=== PATIENT | male | born 1980 | race Caucasian/White ===

== ENCOUNTER 2017-02-13 23:05 | Emergency (ER) | payer MEDICARE, MEDICAID ==
[~2017-02-13] VITALS: Ht 177.8 cm; Wt 73.6 kg
[~2017-02-13 23:05] MED LIST: /AUGM875TA; ABIL2TAB; AMBI5TAB; EFFE75CA75; EFFEXOR; EFFEXOR XR; GABA300T; LORATADINE; NEUR300C; VICO5TAB; ZONISAMIDE
[2017-02-13 23:06] VITALS: BP 135/71
[2017-02-13] MEDS ORDERED: MELA1LIQ PO (23:30)
[2017-02-13] MEDS ORDERED: SERO1TAB3 PO (23:30)
[2017-02-13] MEDS ORDERED: ALPR0.25 (23:30)
== END 2017-02-14 03:20 | disposition left against medical advice (07) ==
LOC: M ED 23:46
DX: R10.9 Unspecified abdominal pain (principal)

== ENCOUNTER 2017-11-30 22:38 | Emergency (ER) | payer MEDICARE, MEDICAID ==
[2017-11-30 23:15] LABS: BASO % 0.5 % (0.0-1.0); EOS # 0.1 10^3/uL (0.0-0.50); EOS % 1.7 % (0.0-3.0); HEMATOCRIT 47.4 % (42.0-52.0); HEMOGLOBIN 15.8 g/dl (13.5-17.5); IMMATURE GRANULOCYTE % 0.2 % (0-3.0); LYMPH # 1.9 10^3/uL (1.5-4.5); LYMPH % 32.2 % (24.0-44.0); MEAN CORPUSCULAR HEMOGLOBIN 30.4 pg (27.0-33.0); MEAN CORPUSCULAR HGB CONC 33.3 g/dl (32.0-36.5); MEAN CORPUSCULAR VOLUME 91.2 fl (80.0-96.0); MONO # 0.5 10^3/uL (0.0-0.8); NEUTROPHILS # 3.5 10^3/uL (1.8-7.7); NEUTROPHILS % 57.4 % (36.0-66.0); PLATELET COUNT, AUTOMATED 260 10^3/uL (150-450); RED CELL DISTRIBUTION WIDTH 13.2 % (11.5-14.5)
[2017-11-30 23:49] LABS: ALBUMIN 4.4 GM/DL (3.2-5.2); ALBUMIN/GLOBULIN RATIO 1.16 (1.00-1.93); ALKALINE PHOSPHATASE 72 U/L (45-117); ALT/SGPT 24 U/L (12-78); ANION GAP 4 MEQ/L (8-16); AST/SGOT 20 U/L (7-37); BILIRUBIN,DIRECT 0.1 MG/DL (0.0-0.2); BILIRUBIN,TOTAL 0.5 MG/DL (0.2-1.0); BLOOD UREA NITROGEN 11 MG/DL (7-18); CARBON DIOXIDE LEVEL 29 MEQ/L (21-32); CHLORIDE LEVEL 106 MEQ/L (98-107); CREATININE FOR GFR 1.09 MG/DL (0.70-1.30); FREE THYROXINE INDEX 2.8 % (1.4-3.8); GLOMERULAR FILTRATION RATE > 60.0 (>60); GLUCOSE, FASTING 83 MG/DL (70-100); POTASSIUM SERUM 4.8 MEQ/L (3.5-5.1); RHEUMATOID FACTOR QUANT < 10.0 IU/ML (<15.0); SODIUM LEVEL 139 MEQ/L (136-145); T UPTAKE 37 % (33-40); THYROXINE (T4) 7.5 UG/DL (4.5-12.0); TOTAL PROTEIN 8.2 GM/DL (6.4-8.2)
[2017-12-01 00:02] LABS: ERYTHROCYTE SEDIMENTATION RATE 1 mm/hr (0-15)
[2017-12-03 00:06] LABS: ANTINUCLEAR ANTIBODIES DIRECT Negative (Negative); Lyme Disease IgG/IgM Antibodie <0.91 ISR (0.00-0.90); Lyme Disease IgM Ab Quantitati <0.80 index (0.00-0.79)
== END 2017-12-01 00:29 | disposition home or self-care (01) ==
LOC: M ED 22:38
DX: R51 Headache (principal); E02 Subclinical iodine-deficiency hypothyroidism
CPT/HCPCS: 84443

== ENCOUNTER 2018-03-28 06:55 | Emergency (ER) | payer MEDICARE, MEDICAID ==
[2018-03-28] MEDS: ASPIRIN 81 MG CHEW TABLET PO (07:45)
[2018-03-28 07:51] LABS: BASO % 0.7 % (0.0-1.0); EOS # 0.1 10^3/uL (0.0-0.50); EOS % 2.3 % (0.0-3.0); HEMATOCRIT 41.9 % (42.0-52.0); HEMOGLOBIN 14.5 g/dl (13.5-17.5); IMMATURE GRANULOCYTE % 0.3 % (0-3.0); LYMPH # 2.6 10^3/uL (1.5-4.5); LYMPH % 43.1 % (24.0-44.0); MEAN CORPUSCULAR HEMOGLOBIN 31.2 pg (27.0-33.0); MEAN CORPUSCULAR HGB CONC 34.6 g/dl (32.0-36.5); MEAN CORPUSCULAR VOLUME 90.1 fl (80.0-96.0); MONO # 0.6 10^3/uL (0.0-0.8); MONO % 10.3 % (0.0-5.0); NEUTROPHILS # 2.7 10^3/uL (1.8-7.7); NEUTROPHILS % 43.3 % (36.0-66.0); PLATELET COUNT, AUTOMATED 253 10^3/uL (150-450); RED BLOOD COUNT 4.65 10^6/uL (4.30-6.10); WHITE BLOOD COUNT 6.1 10^3/uL (4.0-10.0)
[2018-03-28 08:03] LABS: ALBUMIN 3.9 GM/DL (3.2-5.2); ALBUMIN/GLOBULIN RATIO 1.03 (1.00-1.93); ALKALINE PHOSPHATASE 59 U/L (45-117); ALT/SGPT 17 U/L (12-78); ANION GAP 8 MEQ/L (8-16); AST/SGOT 14 U/L (7-37); BILIRUBIN,DIRECT 0.1 MG/DL (0.0-0.2); BILIRUBIN,TOTAL 0.3 MG/DL (0.2-1.0); BLOOD UREA NITROGEN 8 MG/DL (7-18); CALCIUM LEVEL 8.7 MG/DL (8.5-10.1); CARBON DIOXIDE LEVEL 26 MEQ/L (21-32); CHLORIDE LEVEL 109 MEQ/L (98-107); CK-MB VALUE MASS < 1.0 NG/ML (<3.6); CPK CREATINE PHOSPHOKINASE 86 U/L (39-308); GLOMERULAR FILTRATION RATE > 60.0 (>60); GLUCOSE, FASTING 88 MG/DL (70-100); LIPASE 259 U/L (73-393); MB/CK RELATIVE INDEX 1.16 (< OR =4); POTASSIUM SERUM 3.6 MEQ/L (3.5-5.1); SODIUM LEVEL 143 MEQ/L (136-145); TOTAL PROTEIN 7.7 GM/DL (6.4-8.2); TROPONIN I < 0.02 NG/ML (< 0.10)
[2018-03-28 08:09] LABS: INR 1.07
[2018-03-28 08:10] LABS: PARTIAL THROMBOPLASTIN TIME 28.6 SECONDS (25.4-37.6)
[2018-03-28] MEDS ORDERED: ISOVUE-370 76% 100ML VIAL (Q9967) As Ordered (08:28)
== END 2018-03-28 10:54 | disposition home or self-care (01) ==
LOC: M ED 06:55
DX: R07.9 Chest pain, unspecified (principal); F42.9 Obsessive-compulsive disorder, unspecified; F31.9 Bipolar disorder, unspecified; F20.0 Paranoid schizophrenia; E03.9 Hypothyroidism, unspecified; R00.1 Bradycardia, unspecified
CPT/HCPCS: Q9967

== ENCOUNTER → 2020-07-01 | Outpatient (CLI) | payer SELFPAY ==
[~2020-07-01] MED LIST changes: +ALPR0.25; +MELA1LIQ PO; +SERO1TAB3 PO
== END ==
LOC: M LABSMTC 18:46
PROVIDERS: ATTEND Pediatrics
DX: Z11.59 Encounter for screening for other viral diseases (principal)

== ENCOUNTER 2020-08-13 21:35 | Emergency (ER) | payer MEDICARE, MEDICAID ==
[~2020-08-13] VITALS: Ht 177.8 cm; Wt 73.4 kg
[2020-08-13 21:37] VITALS: BP 134/85
--- OUTSIDE RECORDS SUMMARY | 2020-08-13 21:42 | CCD ---
Author Author [facility] Organization [facility] Address Unknown Phone Unavailable Care Team Providers Care Post Office Markup Clerk Name Role Phone Samantha TABARES Unavailable Unavailable SYMENOW, Johanny CHRISTGRAICAER PA Unavailable Unavailable SYMENOW, G CHRISTOPHER PA Unavailable Unavailable SYMENOW, G CHRISTOPHER PA Unavailable Unavailable SYMENOW, G CHRISTOPHER PA Unavailable Unavailable SYMENOW, G CHRISTOPHER PA Unavailable Unavailable SYMENOW, G CHRISTOPHER PA Unavailable Unavailable SYMENOW, G CHRISTOPHER PA Unavailable Unavailable SYMENOW, G CHRISTOPHER PA Unavailable Unavailable SYMENOW, G CHRISTOPHER PA Unavailable Unavailable SYMENOW, G CHRISTOPHER PA Unavailable Unavailable SYMENOW, G CHRISTOPHER PA Unavailable Unavailable SYMENOW, G CHRISTOPHER PA Unavailable Unavailable SYMENOW, G CHRISTOPHER PA Unavailable Unavailable SYMENOW, G CHRISTOPHER PA Unavailable Unavailable SYMENOW, G CHRISTOPHER PA Unavailable Unavailable SYMENOW, G CHRISTOPHER PA Unavailable Unavailable SYMENOW, G CHRISTOPHER PA Unavailable Unavailable Queen, W Inocente RPA-C Unavailable Unavailable Queen, W Inocente RPA-C Unavailable Unavailable Queen, W Inocente RPA-C Unavailable Unavailable Queen, W Inocente RPA-C Unavailable Unavailable Queen, W Inocente RPA-C Unavailable Unavailable Queen, W Inocente RPA-C Unavailable Unavailable Queen, W Inocente RPA-C Unavailable Unavailable Queen, W Inocente RPA-C Unavailable Unavailable Queen, W Inocente RPA-C Unavailable Unavailable Queen, W Inocente RPA-C Unavailable Unavailable Queen, W Inocente RPA-C Unavailable Unavailable Queen, W Inocente RPA-C Unavailable Unavailable Queen, W Inocente RPA-C Unavailable Unavailable Queen, W Inocente RPA-C Unavailable Unavailable Queen, W Inocente RPA-C Unavailable Unavailable Queen, W Inocente RPA-C Unavailable Unavailable FLYNN, L LAUREL PA Unavailable Unavailable FLYNN, L LAUREL PA Unavailable Unavailable FLYNN, L LAUREL PA Unavailable Unavailable FLYNN, L LAUREL PA Unavailable Unavailable FLYNN, L LAUREL PA Unavailable Unavailable FLYNN, L LAUREL PA Unavailable Unavailable FLYNN, L LAUREL PA Unavailable Unavailable FLYNN, L LAUREL PA Unavailable Unavailable FLYNN, L LAUREL PA Unavailable Unavailable FLYNN, L LAUREL PA Unavailable Unavailable FLYNN, L LAUREL PA Unavailable Unavailable FLYNN, L LAUREL PA Unavailable Unavailable FLYNN, L LAUREL PA Unavailable Unavailable FLYNN, L LAUREL PA Unavailable Unavailable FLYNN, L LAUREL PA Unavailable Unavailable FLYNN, L LAUREL PA Unavailable Unavailable FLYNN, L LAUREL PA Unavailable Unavailable FLYNN, L LAUREL PA Unavailable Unavailable FLYNN, L LAUREL PA Unavailable Unavailable VIGEANT, KEVIN PA Unavailable Unavailable VIGEANT, KEVIN PA Unavailable Unavailable VIGEANT, KEVIN PA Unavailable Unavailable VIGEANT, KEVIN PA Unavailable Unavailable VIGEANT, KEVIN PA Unavailable Unavailable VIGEANT, KEVIN PA Unavailable Unavailable VIGEANT, KEVIN PA Unavailable Unavailable VIGEANT, KEVIN PA Unavailable Unavailable VIGEANT, KEVIN PA Unavailable Unavailable VIGEANT, KEVIN PA Unavailable Unavailable VIGEANT, KEVIN PA Unavailable Unavailable VIGEANT, KEVIN PA Unavailable Unavailable VIGEANT, KEVIN PA Unavailable Unavailable VIGEANT, KEVIN PA Unavailable Unavailable VIGEANT, KEVIN PA Unavailable Unavailable VIGEANT, KEVIN PA Unavailable Unavailable VIGEANT, KEVIN PA Unavailable Unavailable VIGEANT, KEVIN PA Unavailable Unavailable San, Reina Unavailable Unavailable San, Reina Unavailable Unavailable San, Reina Unavailable Unavailable San, Reina Unavailable Unavailable San, Reina Unavailable Unavailable San, Reina Unavailable Unavailable San, Reina Unavailable Unavailable FAYE, FAROOQ PA Unavailable Unavailable FAYE, FAROOQ PA Unavailable Unavailable FAYE, FAROOQ PA Unavailable Unavailable FAYE, FAROOQ PA Unavailable Unavailable FAYE, FAROOQ PA Unavailable Unavailable FAYE, FAROOQ PA Unavailable Unavailable FAYE, FAROOQ PA Unavailable Unavailable FAYE, FAROOQ PA Unavailable Unavailable FAYE, FAROOQ PA Unavailable Unavailable FAYE, FAROOQ PA Unavailable Unavailable FAYE, FAROOQ PA Unavailable Unavailable FAYE, FAROOQ PA Unavailable Unavailable FAYE, FAROOQ PA Unavailable Unavailable FAYE, FAROOQ PA Unavailable Unavailable FAYE, FAROOQ PA Unavailable Unavailable FAYE, FAROOQ PA Unavailable Unavailable FAYE, FAROOQ PA Unavailable Unavailable FAYE, FAROOQ PA Unavailable Unavailable FAYE, FAROOQ PA Unavailable Unavailable FAYE, FAROOQ PA Unavailable Unavailable FAYE, FAROOQ PA Unavailable Unavailable FAYE, FAROOQ PA Unavailable Unavailable FAYE, FAROOQ PA Unavailable Unavailable FAYE, FAROOQ PA Unavailable Unavailable FAYE, FAROOQ PA Unavailable Unavailable FAYE, FAROOQ PA Unavailable Unavailable FAYE, FAROOQ PA Unavailable Unavailable FAYE, FAROOQ PA Unavailable Unavailable FAYE, FAROOQ PA Unavailable Unavailable FAYE, FAROOQ PA Unavailable Unavailable FAYE, FAROOQ PA Unavailable Unavailable FAYE, FAROOQ PA Unavailable Unavailable FAYE, FAROOQ PA Unavailable Unavailable FAYE, FAROOQ PA Unavailable Unavailable FAYE, FAROOQ PA Unavailable Unavailable FAYE, FAROOQ PA Unavailable Unavailable FAYE, FAROOQ PA Unavailable Unavailable FAYE, FAROOQ PA Unavailable Unavailable Star, A Irina HISTORIC SITES REGISTRAR Unavailable Unavailable Star, A Irina HISTORIC SITES REGISTRAR Unavailable Unavailable Star, A Irina HISTORIC SITES REGISTRAR Unavailable Unavailable Star, A Irina HISTORIC SITES REGISTRAR Unavailable Unavailable Star, A Irina HISTORIC SITES REGISTRAR Unavailable Unavailable Star, A Irina HISTORIC SITES REGISTRAR Unavailable Unavailable Star, A Irina HISTORIC SITES REGISTRAR Unavailable Unavailable Star, A Irina HISTORIC SITES REGISTRAR Unavailable Unavailable Star, A Irina HISTORIC SITES REGISTRAR Unavailable Unavailable Star, A Irina HISTORIC SITES REGISTRAR Unavailable Unavailable Star, A Irina HISTORIC SITES REGISTRAR Unavailable Unavailable Star, A Irina HISTORIC SITES REGISTRAR Unavailable Unavailable Star, A Irina HISTORIC SITES REGISTRAR Unavailable Unavailable Star, A Irina HISTORIC SITES REGISTRAR Unavailable Unavailable Star, A Irina HISTORIC SITES REGISTRAR Unavailable Unavailable Star, A Irina HISTORIC SITES REGISTRAR Unavailable Unavailable Star, A Irina HISTORIC SITES REGISTRAR Unavailable Unavailable Star, A Irina HISTORIC SITES REGISTRAR Unavailable Unavailable Star, A Irina HISTORIC SITES REGISTRAR Unavailable Unavailable Star, A Irina HISTORIC SITES REGISTRAR Unavailable Unavailable Star, A Irina HISTORIC SITES REGISTRAR Unavailable Unavailable Star, A Irina HISTORIC SITES REGISTRAR Unavailable Unavailable Star, A Irina HISTORIC SITES REGISTRAR Unavailable Unavailable Star, A Irina HISTORIC SITES REGISTRAR Unavailable Unavailable Star, A Irina HISTORIC SITES REGISTRAR Unavailable Unavailable Star, A Irina HISTORIC SITES REGISTRAR Unavailable Unavailable Star, A Irina HISTORIC SITES REGISTRAR Unavailable Unavailable Star, A Irina HISTORIC SITES REGISTRAR Unavailable Unavailable Star, A Irina HISTORIC SITES REGISTRAR Unavailable Unavailable Star, A Irina HISTORIC SITES REGISTRAR Unavailable Unavailable Star, A Irina HISTORIC SITES REGISTRAR Unavailable Unavailable Star, A Irina HISTORIC SITES REGISTRAR Unavailable Unavailable Star, A Irina HISTORIC SITES REGISTRAR Unavailable Unavailable Star, A Irina HISTORIC SITES REGISTRAR Unavailable Unavailable Star, A Irina HISTORIC SITES REGISTRAR Unavailable Unavailable Star, A Irina HISTORIC SITES REGISTRAR Unavailable Unavailable Star, A Irina HISTORIC SITES REGISTRAR Unavailable Unavailable Star, A Irina HISTORIC SITES REGISTRAR Unavailable Unavailable Star, A Irina HISTORIC SITES REGISTRAR Unavailable Unavailable Star, A Irina HISTORIC SITES REGISTRAR Unavailable Unavailable Star, A Irina HISTORIC SITES REGISTRAR Unavailable Unavailable Star, A Irina HISTORIC SITES REGISTRAR Unavailable Unavailable Star, A Irina HISTORIC SITES REGISTRAR Unavailable Unavailable Star, A Irina HISTORIC SITES REGISTRAR Unavailable Unavailable PAMELA, THAO KRUSE Unavailable Unavailable PAMELA, THAO KRUSE Unavailable Unavailable PAMELA, THAO DA SILVA PA Unavailable Unavailable PAMELA, THAO DA SILVA PA Unavailable Unavailable PAMELA, THAO DA SILVA PA Unavailable Unavailable PAMELA, THAO REKHA PA Unavailable Unavailable PAMELA, THAO REKHA PA Unavailable Unavailable PAMELA, THAO REKHA PA Unavailable Unavailable PAMELA, THAO REKHA PA Unavailable Unavailable PAMELA, THAO REKHA PA Unavailable Unavailable PAMELA, THAO REKHA PA Unavailable Unavailable PAMELA, THAO REKHA PA Unavailable Unavailable PAMELA, THAO REKHA PA Unavailable Unavailable PAMELA, THAO REKHA PA Unavailable Unavailable PAMELA, THAO REKHA PA Unavailable Unavailable PAMELA, THAO REKHA PA Unavailable Unavailable PAMELA, THAO REKHA PA Unavailable Unavailable PAMELA, THAO REKHA PA Unavailable Unavailable PAMELA, THAO REKHA PA Unavailable Unavailable PAMELA, THAO RKEHA PA Unavailable Unavailable PAMELA, THAO REKHA PA Unavailable Unavailable Danica, M Irina PA-C Unavailable Unavailable Danica, M Irina PA-C Unavailable Unavailable Danica, M Irina PA-C Unavailable Unavailable Danica, M Irina PA-C Unavailable Unavailable Dnaica, M Irina PA-C Unavailable Unavailable Danica, M Irina PA-C Unavailable Unavailable Danica, M Irina PA-C Unavailable Unavailable Danica, M Irina PA-C Unavailable Unavailable Danica, M Irina PA-C Unavailable Unavailable Danica, M Irina PA-C Unavailable Unavailable Danica, M Irina PA-C Unavailable Unavailable Danica, M Irina PA-C Unavailable Unavailable Danica, M Irina PA-C Unavailable Unavailable Danica, M Irina PA-C Unavailable Unavailable Danica, M Irina PA-C Unavailable Unavailable Danica, M Irina PA-C Unavailable Unavailable Danica, M Irina PA-C Unavailable Unavailable Danica, M Irina PA-C Unavailable Unavailable Danica, M Irina PA-C Unavailable Unavailable Danica, M Irina PA-C Unavailable Unavailable Danica, M Irina PA-C Unavailable Unavailable Danica, M Irina PA-C Unavailable Unavailable Danica, M Irina PA-C Unavailable Unavailable SEVILLA, CODY BEAUCHAMP Unavailable Unavailable SEVILLA SR, BUSTER BROWN MD Unavailable Unavailable SEVILLA SR, BUSTER BROWN MD Unavailable Unavailable SEVILLA SR, BUSTER BROWN MD Unavailable Unavailable SEVILLA SR, BUSTER BROWN MD Unavailable Unavailable SEVILLA SR, BUSTER BROWN MD Unavailable Unavailable SEVILLA SR, BUSTER BROWN MD Unavailable Unavailable SEVILLA SR, BUSTER BROWN MD Unavailable Unavailable SEVILLA SR, BUSTER BROWN MD Unavailable Unavailable SEVILLA SR, BUSTER BROWN MD Unavailable Unavailable SEVILLA SR, BUSTER BROWN MD Unavailable Unavailable SEVILLA SR, BUSTER BROWN MD Unavailable Unavailable SEVILLA SR, BUSTER BROWN MD Unavailable Unavailable SEVILLA SR, BUSTER BROWN MD Unavailable Unavailable SEVILLA SR, BUSTER BROWN MD Unavailable Unavailable SEVILLA SR, BUSTER BROWN MD Unavailable Unavailable SEVILLA SR, BUSTER BROWN MD Unavailable Unavailable SEVILLA SR, BUSTER BROWN MD Unavailable Unavailable SEVILLA SR, BUSTER BROWN MD Unavailable Unavailable SEVILLA SR, BUSTER BROWN MD Unavailable Unavailable SEVILLA SR, BUSTER BROWN MD Unavailable Unavailable SEVILLA SR, BUSTER BROWN MD Unavailable Unavailable SEVILLA SR, BUSTER BROWN MD Unavailable Unavailable SEVILLA SR, BUSTER BROWN MD Unavailable Unavailable SEVILLA SR, BUSTER BROWN MD Unavailable Unavailable SEVILLA SR, BUSTER BROWN MD Unavailable Unavailable SEVILLA SR, BUSTER BROWN MD Unavailable Unavailable SEVILLA SR, BUSTER BROWN MD Unavailable Unavailable SEVILLA SR, BUSTER BROWN MD Unavailable Unavailable SEVILLA SR, BUSTER BROWN MD Unavailable Unavailable SEVILLA SR, BUSTER BROWN MD Unavailable Unavailable SEVILLA SR, BUSTER BROWN MD Unavailable Unavailable SEVILLA SR, BUSTER BROWN MD Unavailable Unavailable SEVILLA SR, BUSTER BROWN MD Unavailable Unavailable SEVILLA SR, BUSTER BROWN MD Unavailable Unavailable SEVILLA SR, BUSTER BROWN MD Unavailable Unavailable SEVILLA SR, BUSTER BROWN MD Unavailable Unavailable SEVILLA SR, BUSTER BROWN MD Unavailable Unavailable SEVILLA SR, BUSTER BROWN MD Unavailable Unavailable SEVILLA SR, BUSTER BROWN MD Unavailable Unavailable SEVILLA SR, BUSTER BROWN MD Unavailable Unavailable SEVILLA SR, BUSTER BROWN MD Unavailable Unavailable SEVILLA SR, BUSTER BROWN MD Unavailable Unavailable SEVILLA SR, BUSTER BROWN MD Unavailable Unavailable SEVILLA SR, BUSTER BROWN MD Unavailable Unavailable SEVILLA SR, BUSTER BROWN MD Unavailable Unavailable SEVILLA SR, BUSTER BROWN MD Unavailable Unavailable SEVILLA SR, BUSTER BROWN MD Unavailable Unavailable SEVILLA SR, BUSTER BROWN MD Unavailable Unavailable SEVILLA SR, BUSTER BROWN MD Unavailable Unavailable SEVILLA SR, BUSTER BROWN MD Unavailable Unavailable SEVILLA SR, BUSTER BROWN MD Unavailable Unavailable SEVILLA SR, BUSTER BROWN MD Unavailable Unavailable SEVILLA SR, BUSTER BROWN MD Unavailable Unavailable SEVILLA SR, BUSTER BROWN MD Unavailable Unavailable ALISSA BALL Unavailable Unavailable Rydberg, Avis PA Unavailable Unavailable Rydberg, Avis PA Unavailable Unavailable Rydberg, Avis PA Unavailable Unavailable Rydberg, Avis PA Unavailable Unavailable Rydberg, Avis PA Unavailable Unavailable Rydberg, Avis PA Unavailable Unavailable Rydberg, Avis PA Unavailable Unavailable Rydberg, Avis PA Unavailable Unavailable Rydberg, Avis PA Unavailable Unavailable Rydberg, Avis PA Unavailable Unavailable Rydberg, Avis PA Unavailable Unavailable Rydberg, Avis PA Unavailable Unavailable Rydberg, Avis PA Unavailable Unavailable Rydberg, Avis PA Unavailable Unavailable Rydberg, Avis PA Unavailable Unavailable Rydberg, Avis PA Unavailable Unavailable Rydberg, Avis PA Unavailable Unavailable Rydberg, Avis PA Unavailable Unavailable Rydberg, Avis PA Unavailable Unavailable Rydberg, Avis PA Unavailable Unavailable Rydberg, Avis PA Unavailable Unavailable Rydberg, Avis PA Unavailable Unavailable Re-disclosure Warning The records that you are about to access may contain information from federally-assisted alcohol or drug abuse programs. If such information is present, then the following federally mandated warning applies: This information has been disclosed to you from records protected by federal confidentiality rules (42 CFR part 2). The federal rules prohibit you from making any further disclosure of this information unless further disclosure is expressly permitted by the written consent of the person to whom it pertains or as otherwise permitted by 42 CFR part 2. A general authorization for the release of medical or other information is NOT sufficient for this purpose. The Federal rules restrict any use of the information to criminally investigate or prosecute any alcohol or drug abuse patient.The records that you are about to access may contain highly sensitive health information, the redisclosure of which is protected by Article 27-F of the [facility] Public Health law. If you continue you may have access to information: Regarding HIV / AIDS; Provided by facilities licensed or operated by the [facility] Office of Mental Health; or Provided by the [facility] Office for People With Developmental Disabilities. If such information is present, then the following [facility] mandated warning applies: This information has been disclosed to you from confidential records which are protected by state law. State law prohibits you from making any further disclosure of this information without the specific written consent of the person to whom it pertains, or as otherwise permitted by law. Any unauthorized further disclosure in violation of state law may result in a fine or shelter sentence or both. A general authorization for the release of medical or other information is NOT sufficient authorization for further disc losure. Allergies and Adverse Reactions Type Description Substance Reaction Status Data Source(s ) [facility] BRANDNAME EFFEXOR [facility] Family History Family Member Name Family Member Gender Family Member Status Date o f Status Description Data Source(s) Unknown Male Problem MEDENT ([facility]) () - at age 24 Encounters Encounter Providers Location Date Indications Data Source(s ) Outpatient Attender: FAROOQ guzman 08/10/2020 07:40:00 AM EST MEDENT ([facility]) Emergency Attender: SMITA TABARESConsultant: NITO LUEVANO 08/08/2020 06:17:00 PM EST - 08/08/2020 08:34:00 PM [facility] Patient discharged. Outpatient [facility] 08/07/2020 12:00:00 AM EST eCW1 ([facility]) Outpatient [facility] 08/01/2020 12:00:00 AM EST eCW1 ([facility]) Outpatient [facility] 08/01/2020 12:00:00 AM EST eCW1 ([facility]) Outpatient Attender: Irina DELGADOCReferrer: Irina Graves [facility] 07/30/2020 08:35:00 AM EST - 07/30/2020 08:35:00 AM [facility] Emergency Attender: HAIM BALLReferrer: Pamela Graves [facility] 07/15/2020 05:42:00 AM EST - 07/15/2020 06:22:00 AM [facility] Patient discharged. Emergency Attender: Inocente Queen RPA-CReferrer: Me doris Graves [facility] 07/05/2020 07:33:00 AM EST - 07/05/2020 12:00:00 PM [facility] Patient discharged. Emergency Attender: REKHA Sagastumeer: Irene Graves [facility] 04/08/2020 05:05:00 PM EDT - 04/08/2020 06:32:00 PM EDT [facility] Patient discharged. Emergency Attender: LAUREL Sagastumeer: Ely lundbergith Star [facility] 03/26/2018 12:35:00 AM EDT - 03/26/2018 03:08:00 AM [facility] Outpatient Attender: Irina Graves FNPReferrer: Irina Graves RODRIGO 11/21/2017 06:44:00 PM EDT - 11/21/2017 06:44:00 PM [facility] Emergency Attender: REKHA Sagastumeer: Pete [facility] 11/09/2017 10:12:00 AM EDT - 11/09/2017 11:40:00 AM [facility] Emergency Attender: PAM Cordova : KEVIN [facility] 09/23/2017 02:43:00 AM EST - 09/23/2017 09:02:00 AM [facility] Emergency Attender: LAUREL Cordova: JACQUES [facility] 02/14/2017 04:40:00 PM EDT - 02/14/2017 07:55:00 PM [facility] Outpatient Attender: Reina Oherrer: Avis KRUSE 03/31/2016 03:01:00 PM [facility] Outpatient Attender: Avis KRUSE 07/13/2013 01:17:00 PM [facility] Outpatient Attender: Avis KRUSE 11/21/2012 03:47:00 PM [facility] Outpatient Attender: KEVIN Cordova: ANETA [facility] 05/09/2012 04:16:00 PM EDT - 05/09/2012 04:16:00 PM [facility] Medications Medication Brand Name Start Date Product Form Dose Route Admi nistrative Instructions Pharmacy Instructions Status Indications Reaction Description Data Source(s) Lidocaine 50 MG/ML Topical Cream Lidocaine (Anorectal) 08/10 12:00:00 AM EST active MEDENT ([facility]) No Active Medications 08/10/2020 12:00:00 AM EST completed MEDENT ([facility], [facility]) Insurance Providers Payer name Policy type / Coverage type Policy ID Covered constitution party ID Covered constitution party's relationship to moss Policy Moss Plan Information SELF PAY ONLY MEDICARE PART A -O/P [id number] 18 [id number] MEDICAID - O/P EMERGENCY ROOM [id number] MEDICARE PART A-O/P [id number] 18 [id number] MEDICAID [id number] S [id number] [place] [facility] [id number] S [id number] [place] [id number] S [id number] MEDICAID [id number] S [id number] [facility] MEDICARE DIVISION [id number] S [id number] [place] [id number] S [id number] MEDICAID [id number] S [id number] [place] [employer] [employer] [id number] S [id number] [place] [id number] S [id number] [place] MED[place] [id number] S [id number] MEDICAID [id number] S [id number] [place] [id number] S [id number] [place] [id number] SP [id number] MEDICARE [id number] SP [id number] MEDICAID M [id number] Self [id number] MEDICARE A [id number] Self [id number] MEDICAID [id number] S [id number] MEDICARE [id number] S [id number] ANSI-Medicare Part B [id number] ANSI-Medicaid [id number] ANSI-Commercial [id number] MEDICAID [id number] MEDICAID [id number] SP [id number] [place] Medig[place] Part B [id number] Self [id number] Medicare [facility] Medicare Primary [id number] Self [id number] MEDICAID [id number] S [id number] MEDICAID M [id number] S [id number] MEDICARE C [id number] S [id number] National Government Serv Medicare Primary [id number] Self [id number] MEDICAID [facility] [id number] [id number] MEDICARE [id number] SP [id number] SELF PAY UNAVAILABLE SP UNAVAILA BLE [id number] Problems, Conditions, and Diagnoses Code Display Name Description Problem Type Effective Dates Data Source(s) E78.2 [id number] Mixed hyperlipidemia Problem 08/04/2020 12:0 0:00 AM EST [facility] ([facility]) M32.9 [id number] History of systemic lupus erythematosus ( SLE) Problem 07/30/2020 12:00:00 AM EST [facility] ([facility]) E03.9 [id number] Hypothyroidism (acquired) Problem 07/30/2020 12:00:00 AM EST [facility] ([facility]) K5900 Constipation, unspecified Constipation, unspecified Di agnosis 08/08/2020 06:17:00 PM [facility] R1084 Generalized abdominal pain Generalized abdominal pain Diagnosis 08/08/2020 06:17:00 PM [facility] Z76.89 Persons encountering health services in other specified circumstances PERSONS ENCOUNTERING HEALTH SERVICES IN OTH CIRCUM Diagnosis 12/2020 08:35:00 AM [facility] Z12.11 Encounter for screening for malignant ne oplasm of colon ENCOUNTER FOR SCREENING FOR MALIGNANT NEOPLASM OF Diagnosis 07/30/2020 08:35:00 AM [facility] M32.9 Systemic lupus erythematosus, unspecifie d SYSTEMIC LUPUS ERYTHEMATOSUS, UNSPECIFIED Diagnosis 07/30/2020 08:35:00 AM [facility] R03.0 Elevated blood-pressure reading, without diagnosis of hypertension ELEVATED BLOOD-PRESSURE READING, W/O DIAGNOSIS OF Diagnosis 12/2020 08:35:00 AM [facility] J34.2 Deviated nasal septum DEVIATED NASAL SEPTUM Diagnosis 07/30/2020 08:35:00 AM [facility] K59.09 Other constipation OTHER CONSTIPATION Diagnosis 12/2020 08:35:00 AM [facility] R73.9 Hyperglycemia, unspecified HYPERGLYCEMIA, UNSPECIFIED Diagnosis 07/30/2020 08:35:00 AM [facility] E03.9 Hypothyroidism, unspecified HYPOTHYROIDISM, UNSPECIFIE D Diagnosis 07/30/2020 08:35:00 AM [facility] Z13.220 Encounter for screening for lipoid disor ders ENCOUNTER FOR SCREENING FOR LIPOID DISOR Diagnosis 07/30/2020 08:35:00 AM [facility] Z84.0 Family history of diseases of the skin a nd subcutaneous tissue FAMILY HISTORY OF DISEASES OF THE SKIN, Diagnosis 07/30/2020 08:35:00 AM [facility] F41.1 Generalized anxiety disorder GENERALIZED ANXIETY DISOR JOY Diagnosis 07/30/2020 08:35:00 AM [facility] 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.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) 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 THERAPY Diagnosis 07/15/2020 05:42:00 AM [facility] K59.00 Constipation, unspecified CONSTIPATION, UNSPECIFIED Di agnosis 07/15/2020 05:42:00 AM [facility] R10.84 Generalized abdominal pain GENERALIZED ABDOMINAL PAIN Diagnosis 07/15/2020 05:42:00 AM [facility] R10.30 Lower abdominal pain, unspecified LOWER ABDOMINA L PAIN, UNSPECIFIED Diagnosis 07/05/2020 07:33:00 AM [facility] R44.3 Hallucinations, unspecified HALLUCINATIONS, UNSPECIFIE D Diagnosis 04/08/2020 05:05:00 PM [facility] R07.89 Other chest pain OTHER CHEST PAIN Diagnosis 04/08/2020 05 :05:00 PM [facility] Results ID Date Data Source [id number] 08/11/2020 09:34:00 AM [facility] [address] [place] [address] PHONE: [phone] FAX: [phone] Name .................. : RAI KEYLA E Acct Number.................. : [id number] ROOM. ................. : TR-06 MR Number ................... : [id number] Stay type ............. : E/R Discharge Date......... ... : 08/08/20 Admit Date .... ..... : 08/08/20 Admit Phys .................... : RAYSHAWN Date of ....... : 1980 Family Phys ................... : [employer] Phone .................. : [phone] Age ................................ : 40 Film# .................. .:[id number] Sex ................................. : M Unsigned transcriptions are preliminary reports and do not represent a medical or legal document CT ABD & PELVIS W/ IV ONLY [id number] COMPLETE:08/08/20 19:17 [facility] 2321 Reason(s): Abdominal Pain CT OF THE ABDOMEN AND PELVIS WITH CONTRAST: INDICATION: Abdominal pain. FINDINGS: The chest base is clear. There is normal contrast-enhanced CT appearance of the liver, spleen, pancreas, adrenal glands and left kidney. The right kidney contains a 1.4 cm simple cyst. No gallbladder wall thickening or biliary duct dilatation. The visualized bowel is normal in caliber. The appendix is not definitively visualized, but there are no right lower quadrant inflammatory changes. The bladder and pelvic organs appear normal. No acute osseous abnormality. No lymphadenopathy. IMPRESSION: No acute intra-abdominal process. While performing the above CT examination, radiation dose reduction was accomplished utilizing automated exposure control, adjusting of the mA and kV based on the patient's body size and/or the use of imperative reconstructive techniques. CT dose: 563.5 mGycm Contrast agent in mL: 75 Isovue 370 Method of administration: Intravenous Page 1 of 2 [facility] [address] [place] [address] [place] [address] PHONE: [phone] FAX: [phone] Name .................. : RAI Garcia Acct Number.................. : [id number] ROOM. ................. : TR-06 MR Number ................... : [id number] Stay type ............. : E/R Discharge Date......... ... : 08/08/20 Admit Date ......... : 08/08/20 Admit Phys .................... : RAYSHAWN Date of ....... : 1980 Family Phys ................... : ROEL KRUSE Phone .................. : [phone] Age ................................ : 40 Film# .................. .:[id number] Sex ................................. : M Unsigned transcriptions are preliminary reports and do not represent a medical or legal document CT ABD & PELVIS W/ IV ONLY [id number] COMPLETE:08/08/20 19:17 [facility] 2321 Reason(s): Abdominal Pain Electronically Reviewed and Signed By Sorin Piña M.D. , 08/11/20 09:34, [place] Transcribe Initials: CHAY , Transcribe Date: 08/08/20 23:19, Dictation Date: Copy for: YUE LAZAR via fax Copy for: EMERGENCY DEPT via modem Copy for: 710 MED REC DISCHARGED Page 2 of 2 Name Value Range Interpretation Code Description Data Thi rce(s) Supporting Document(s) ID Date Data Source [id number] 08/08/2020 06:17:00 PM EST [facility] 1 OrderSheet [facility] Emergency Department [address] [place] [address] Phone #: ext- [phone] 08/08/2020 17:55 Patient: KEYLA ATWOOD Sex: M : 1980 Age: 40yWEIGHT:76.2 kg (S) HEIGHT:70 inches (S) BMI:24.1ALLERGIES: Abilify, Benadryl worsen every thinng, Effexor, LunestaCHIEF COMPLAINT: abdominal painDIAGNOSIS: Constipation, Abdominal painLAB ORDERSOrder Description Priority Entered Acknowledged InitialedCBC w Diff STAT 18:08/08/2020 18:33 Pedro Islas RN PA;CMP STAT 18:08/08/2020 18:33 Pedro Islas RN PA;Lipase STAT 18:08/08/2020 18:33 Pedro Islas RN PA;Urinalysis (Clean STAT 18:08/08/2020 Cancelled: Unable to Collect 20:34Catch) Lizabeth Church R.N.;Lactic Acid STAT 18:08/08/2020 18:33 Pedro Islas RN PA;DIAGNOSTIC STUDY ORDERSOrder Description Priority Entered Acknowledged InitialedCT Abd PEL W/ IV STAT 18:31 08/08/2020 18:33 TerryContrast Only Alberto Islas RN(Oxygen?(No)) PA;(IV?(Yes)) Reason for Study: Abdominal PainMEDICATION/IV/DRIP/FLUID ORDERSOrder Description Priority Entered Acknowledged InitialedNS IV 1000 mL 18:31 08/08/2020 18:54 TerryBolus: : Bolus 1000 Alberto Islas RNmL (X1) PA;Toradol IVP 30 mg 18:31 08/08/2020 18:55 Pedro Islas RN 2 OrderSheet [facility] Emergency Department [address] [place] [address] Phone #: ext- [phone] 08/08/2020 17:55 Patient: KEYLA ATWOOD Sex: M : 1980 Age: 40y PA;Reglan 10 mg IVP 18:31 08/08/2020 18:56 TerryX1 dose: 10 mg Alberto Islas RN(NOW x1) PA;hydrOXYzine PO 25 19:17 08/08/2020 19:23 Terrymg Alberto Islas RN PA; Reason for ordering with alerts: Clinical consideration given -- 19:17 08/08/2020 Alberto Guerra PAPepcid PO 20 mg 19:17 08/08/2020 19:23 Pedro(NOW x1) Alberto Islas RN PA; Reason for ordering with alerts: Clinical consideration given -- 19:17 08/08/2020 Alberto Guerra PASOLU-Medrol 125 19:21 08/08/2020 19:28 Terrymg IV X1 Dose: 125 Alberto Islas RNmg (X1) PA;GENERAL ORDERSOrder Description Priority Entered Acknowledged InitialedNPO 18:31 08/08/2020 18:33 Pedro KRUSE;Saline Lock 18:31 08/08/2020 18:33 Pedro KRUSE;[Electronically signed by Lizabeth Mazariegos R.N. (20:37 08/08/2020)][Electronically signed by Alberto Guerra (21:34 0 08/08/2020)][Electronically locked by Lizabeth Mazariegos R.N. (20:37 08/08/2020)] Name Value Range Interpretation Code Description Data Thi rce(s) Supporting Document(s) ID Date Data Source [id number] 08/08/2020 06:17:00 PM EST [facility] 1 Medication Reconciliation Report [facility] Emergency Department [address] [place] [address] Phone #: ext- [phone] 08/08/2020 17:55 Patient: KEYLA ATWOOD Sex: M : 1980 Age: 40yWeight: 76.2 kgHeight/Length: 70 in.BMI: 24.1ALLERGIES: Abilify, Benadryl worsen every thinng, Effexor, LunestaThe patient's Home Medications are listed below:CONTINUE TAKING THE FOLLOWING MEDICATIONS: SEROquel Oral Xanax OralThe source(s) of the original Home Medication information:patientThe following Medications were given to the patient in the Emergency Department:NS [IV] IV Fluids bolus 1000 mL over 1 hour(s), administered: 18:49 08/08/2020Toradol [IVP] IVP 30 mg, administered: 18:50 0 1Reglan [IVP] IVP 10 mg, administered: 18:51 08/08/2020Hydroxyzine [PO] PO 25 mg, administered: 19:23 1Pepcid [PO] PO 20 mg, administered: 19:23 08/08/2020olu-Medrol [IVP] IVP 125 mg, administered: 19:28 08/08/2020The following Medications were prescribed to the patient:None. Name Value Range Interpretation Code Description Data Thi rce(s) Supporting Document(s) ID Date Data Source [id number] 08/08/2020 06:17:00 PM EST [facility] 1 Medication Administration Record [facility] Emergency Department [address] [place] [address] Phone #: ext- [phone] 08/08/2020 17:55 Patient: KEYLA ATWOOD Sex: M : 1980 Age: 40yWeight: 76.2 kgHeight/Length: 70 inBMI: 24.1ALLERGIES: Lunesta, Abilify, Effexor, Benadryl worsen every thinng Date/Time Medication Administered Medication OrderedStart NS [IV] NS IV 1000 mL Bolus: : Bolus 157907:49 08/08/2020 Dose: IV Fluids mL (X1)Pedro Islas RN Bolus: 1000 mL over 1 hour(s)---- Dispensed: 1000 mL bagStop Site: #1 right AC20:05 08/08/2020Carla Newton R.N.Given TORADOL [IVP] (KETOROLAC Toradol IVP 30 mg18:50 08/08/2020 TROMETHAMINE)Pedro sIlas RN Dose: 30 mg IVP Site: #1 right ACGiven REGLAN [IVP] (METOCLOPRAMIDE Reglan 10 mg IVP X1 dose: 10 mg18:51 08/08/2020 HCL) (NOW x1)Pedro Islas RN Dose: 10 mg IVP Site: #1 right ACGiven HYDROXYZINE [PO] hydrOXYzine PO 25 mg19:23 08/08/2020 Dose: 25 mg Tablets Salazar Islas RNGiven PEPCID [PO] (FAMOTIDINE) Pepcid PO 20 mg (NOW x1)19:23 08/08/2020 Dose: 20 mg Tablets Dariela Amosven SOLU-MEDROL [IVP] SOLU-Medrol 125 mg IV X1 Dose:19:28 08/08/2020 (METHYLPREDNISOLONE SODIUM 125 mg (X1)Pedro Islas RN SUCC) Dose: 125 mg IVP Site: #1 right AC Name Value Range Interpretation Code Description Data Thi rce(s) Supporting Document(s) ID Date Data Source [id number] 08/08/2020 06:17:00 PM EST [facility] 1 General Instructions [facility] Emergency Department [address] [place] [address] Phone #: ext- [phone] 08/08/2020 17:55 Patient: KEYLA ATWOOD Sex: M : 1980 Age: 40yChronic generalized abdominal pain of unknown cause.ConstipationINSTRUCTIONSDrink plenty of fluids.(Continue taking Miralax as prescribed.).Warnings: Further evaluation is necessary in order to conduct further tests. It is very important to follow upwith a healthcare provider.GENERAL WARNINGS: Return or contact your physician immediately if your condition worsens orchanges unexpectedly, if not improving as expected, or if other problems arise. SPECIFICALLY, return ifyou develop the inability to keep fluids down, blood in diarrhea, fainting or lightheadedness; or if there is noimprovement in the pain in the abdomen.Your Current Medications: Your current home medications have been reviewed.CONTINUE TAKING THE FOLLOWING MEDICATIONS:SEROquel Oral.Xanax Oral.Follow-up:Follow up with a specialist as scheduled. Reason for referral: evaluation and treatment. Summary of careprovided to patient.Understanding of the discharge instructions verbalized by patient. ADDITIONAL INFORMATIONUnknown Causes of Abdominal Pain (Male)Based on your visit today, the exact cause of your abdominal pain is not clear. Your exam and testsdon't suggest a dangerous cause at this time. However, the signs of a serious problem may takemore time to appear. Although your evaluation was reassuring today, sometimes early in the courseof many conditions, exam and lab tests can appear normal. Therefore, it is important for you to watchfor any new symptoms or worsening of your condition.It may not be obvious what caused your symptoms. Pay attention to things that do seem to make 2 General Instructions [facility] Emergency Department [address] [place] [address] Phone #: ext- [phone] 08/08/2020 17:55 Patient: KEYLA ATWOOD Sex: M : 1980 Age: 40yyour symptoms worse or better and discuss this with your doctor when you follow up.The evaluation of abdominal pain in the emergency department may only require an exam by thedoctor or it may include blood, urine or imaging studies, depending on many factors. Sometimesexams and tests can identify a cause but in many cases, a clear cause is not found. Further testing atfollow up visits may help to suggest a clear diagnosis.Home care Rest as much as you can until your next exam. Try to avoid any medicines (unless otherwise directed by your doctor), foods, activities, or other factors that may have contributed to your symptoms. Try to eat foods that you know that you have tolerated well in the past. Certain diets may be recommended for some conditions that cause abdominal pain. However, since the cause of your symptoms may not be clear, discuss your diet more with your healthcare provider or specialist for further recommendations. If you have diarrhea, it may help to avoid dairy (lactose) for the time being. A low fat, low fiber diet can also help. Eating several small meals per day as opposed to 2 or 3 larger meals may help. Avoid dehydration. Make sure to drink plenty of water. Other options include broth, soup, gelatin, sports drinks, or other clear liquids. Watch closely for anything that may make your symptoms worse or better. Pay close attention to symptoms below that may mean your condition is getting worse.Follow-up careFollow up with your healthcare provider if your symptoms are not improving, or as advised. In somecases, you may need more testing.When to seek medical adviceCall your healthcare provider right away if any of these occur: Pain is becoming worse You are unable to take your medicines or can't keep water down due to excessive vomiting Swelling of the abdomen 3 General Instructions [facility] Emergency Department [address] [place] [address] Phone #: ext- [phone] 08/08/2020 17:55 Patient: KEYLA ATWOOD Sex: M : 1980 Age: 40y Fever of 100.4F (38C) or higher, or as directed by your healthcare provider Blood in vomit or bowel movements (dark red or black color) Jaundice (yellow color of eyes and skin) New onset of weakness, dizziness or fainting New onset of chest, arm, back, neck or jaw pain [phone] [employer] [place] [address]. All rights reserved. This information is not intended as asubstitute for professional medical care. Always follow your healthcare professional's instructions.Constipation (Adult)Constipation means that you have bowel movements that are less frequent than usual. Stools oftenbecome very hard and difficult to pass.Constipation is very common. At some point in life, it affects almost everyone. Since everyone'sbowel habits are different, what is constipation to one person may not be to another. Your health careprovider may do tests to diagnose constipation. It depends on what he or she finds when evaluatingyou.Symptoms of constipation include: Abdominal pain Bloating Vomiting Painful bowel movements Itching, swelling, bleeding, or pain around the anus 4 General Instructions [facility] Emergency Department [address] [place] [address] Phone #: ext- [phone] 08/08/2020 17:55 Patient: KEYLA ATWOOD Sex: M : 1980 Age: 40yCausesConstipation can have many causes. These include: Diet low in fiber Too much dairy Not drinking enough liquids Lack of exercise or physical activity (especially true for older adults) Changes in lifestyle or daily routine, including , aging, work, and travel Frequent use or misuse of laxatives Ignoring the urge to have a bowel movement or delaying it until later Medicines, such as certain prescription pain medicines, iron supplements, antacids, certain antidepressants, and calcium supplements Diseases like irritable bowel syndrome, bowel obstructions, stroke, diabetes, thyroid disease, Parkinson disease, hemorrhoids, and colon cancerComplicationsPotential complications of constipation can include: Hemorrhoids Rectal bleeding from hemorrhoids or anal fissures (skin tears) Hernias Dependency on laxatives Chronic constipation Fecal impaction, a severe form of constipation in which a large amount of hard stool is in your rectum that you can't pass Bowel obstruction or perforationHome careAll treatment should be done after talking with your healthcare provider. This is especially true if youhave another medical problems, are taking prescription medicines, or are an older adult. Treatmentmost often involves lifestyle changes. You may also need medicines. Your healthcare provider will tellyou which will work best for you. Follow the advice below to help avoid this problem in the future. 5 General Instructions [facility] Emergency Department [address] [place] [address] Phone #: ext- [phone] 08/08/2020 17:55 Patient: KEYLA ATWOOD Sex: M : 1980 Age: 40yLifestyle changesThese lifestyle changes can help prevent constipation: Diet. Eat a high-fiber diet, with fresh fruit and vegetables, and reduce dairy intake, meats, and processed foods Fluids. It's important to get enough fluids each day. Drink plenty of water when you eat more fiber. If you are on diet that limits the amount of fluid you can have, talk about this with your healthcare provider. Regular exercise. Check with your healthcare provider first.MedicinesTake any medicines as directed. Some laxatives are safe to use only every now and then. Others canbe taken on a regular basis. While laxatives don't cause bowel dependence, they are treating thesymptoms. So your constipation may return if you don't make other changes. Talk with yourhealthcare provider or pharmacist if you have questions.Prescription pain medicines can cause constipation. If you are taking this kind of medicine, ask yourhealthcare provider if you should also take a stool softener.Medicines you may take to treat constipation include: Fiber supplements Stool softeners Laxatives Enemas Rectal suppositoriesFollow-up careFollow up with your healthcare provider if symptoms don't get better in the next few days. You mayneed to have more tests or see a specialist.Call [phone] if any of these occur: Trouble breathing Stiff, rigid abdomen that is severely painful to touch 6 General Instructions [facility] Emergency Department [address] [place] [address] Phone #: ext- [phone] 08/08/2020 17:55 Patient: KEYLA ATWOOD Sex: M : 1980 Age: 40y Confusion Fainting or loss of consciousness Rapid heart rate Chest painWhen to seek medical adviceCall your healthcare provider right away if any of these occur: Fever of 100.4F (38C) or higher, or as directed by your healthcare provider Failure to resume normal bowel movements Pain in your abdomen or back gets worse Nausea or vomiting Swelling in your abdomen Blood in the stool Black, tarry stool Involuntary weight loss Weakness [phone] [employer]. [address] [place] [address], [place] [address]. All rights reserved. This information is not intended as asubstitute for professional medical care. Always follow your healthcare professional's instructions. You have been given the following additional information: Unknown Causes of Abdominal Pain (Male) Constipation (Adult)(Electronically signed by URIAH Lucio 08/08/2020 21:34) Name Value Range Interpretation Code Description Data Thi rce(s) Supporting Document(s) ID Date Data Source [id number] 08/08/2020 06:17:00 PM EST [facility] 1 Clinical Report - Nurses [facility] Emergency Department [address] [place] [address] Phone #: ext- [phone] 08/08/2020 17:55 Patient: KEYLA ATWOOD Sex: M : 1980 Age: 40yTRIAGEArrived by private vehicle. Historian: patient. Accompanied by spouse (in car).Triage time: 18:00 08/08/2020. Acuity: LEVEL 3.Chief Complaint: ABDOMINAL PAIN.Alert. No acute distress.Onset. (has increased since April). ( Pt states he has had bowel issues since he was a young kid. [facility]has [facility] same issue with no results. Pt feels like he needs todefecate all the time with no results. He has c/o cramping and constant irritation with his bowel. Pt isscheduled for a colonoscopy on the .). The patient has had constipation and abdominal pain.Treatment ENTERER:None. --18:07 08/08/20 Lizabeth Mazariegos R.N.18:11 08/08/20. BP: 138/88. MAP: 104. HR: 44. RR: 16. O2 saturation: 100% on room air. Temp: 96.1 F(oral). Pain level now: 01/01. --18:14 08/08/20 Lizabeth Mazariegos R.N.Weight: 76.2 kg stated. Height/Length: 70 inches Per Patient. BMI: 24.1. --18:00 08/08/20 Lizabeth Mazariegos R.N.MedicationsSEROquel Oral. --18:05 08/08/20 Lizabeth Mazariegos R.N. Xanax Oral. --18:05 08/08/20 Lizabeth Mazariegos R.N.AllergiesEffexor. --18:05 08/08/20 Lizabeth Mazariegos R.N.Abilify. --18:05 08/08/20 Lizabeth Mazariegos R.N.Lunesta. --18:05 08/08/20 Lizabeth Mazariegos R.N.Benadryl worsen every thinng. --19:18 08/08/20 Pedro Islas RN.PROBLEMS:Irritable bowel syndrome (disorder). --18:18 08/08/20 Pedro Islas RN.Medication/allergy information source: the patient. --18:07 08/08/20 Lizabeth Mazariegos R.N.ADDITIONAL SURGERIES:Adenoidectomy. --18:06 08/08/20 Lizabeth Mazariegos R.N.History 2 Clinical Report - Nurses [facility] Emergency Department [address] [place] [address] Phone #: ext- [phone] 08/08/2020 17:55 [id number] Sex[facility] M : 1980 Age: 40y PAST MEDICAL HX: Immunizations: up-to-date. SOCIAL HX: Never smoker. No alcohol use. The patient was offered HIV testing but declined. Patient education was provided. The patient was offered hepatitis C testing but declined. Patient education was provided. The patient has not traveled outside the [place] Infectious disease exposure: No infectious disease exposure. (COVID screen negative). Patient is not a known carrier of tuberculosis, hepatitis, HIV, MRSA or VRE. Patient is not a known carrier of CRE. SELF HARM ASSESSMENT: Self harm assessment was performed. The patient answered "no" to the question(s) "Do you have thoughts of harming or killing yourself?", "Do you have a plan for harming or killing yourself?" and "Have you recently had thoughts about harming or killing others?". ABUSE ASSESSMENT: Abuse assessment. The patient had positive responses to the question(s) "Do you feel safe in your home?" (yes). Abuse denied. No suspicion of abuse. No report of abuse. NUTRITIONAL RISK ASSESSMENT: The nutritional risk assessment revealed no deficiencies. FUNCTIONAL ASSESSMENT: Functional assessment: no impairments noted. LEARNING NEEDS ASSESSMENT: The learning needs assessment revealed no barriers. FALL RISK ASSESSMENT: Fall risk assessment completed. No risk factors identified. SKIN INTEGRITY ASSESSMENT: Skin integrity risk assessment completed. No skin integrity risk identified. --18:07 08/08/20 Lizabeth Mazariegos R.N. Interventions Identification band on patient. --18:07 08/08/20 Lizabeth Mazariegos R.N.PHYSICAL [id number]:16 08/08/20. Ambulatory to room.GENERAL / NEURO / PSYCH: Alert. Oriented X 4.RESPIRATORY: Respirations not labored. Breath sounds within normal limits.CVS: Capillary refill less than 2 seconds.GI / : Abdomen soft and nontender. Bowel sounds within normal limits.SKIN: Skin is warm and dry. --18:16 08/08/20 Pedro Islas RN.NURSING PROGRESS NOTESNIBP monitor and pulse oximeter placed on patient; monitor alarms on. Patient gowned. Reassurancegiven. Three patient identifiers checked. Call light placed in reach. Side rails up x 2. Bed placed inlowest position. Brakes of bed on. Patient ready for evaluation- ED physician and PA notified. --18: Lizabeth Mazariegos R.N. 18:49 08/08/2020 Site #1 started via IV in the right antecubital space with an 20g angiocath; one attempt. Blood drawn: rainbow set. Labeled in the presence of the patient and sent to the lab. --18:54 08/08/20 3 Clinical Report - Nurses [facility] Emergency Department [address] [place] [address] Phone #: ext- [phone] 08/08/2020 17:55 Patient: KEYLA ATWOOD Sex: M : 1980 Age: 40yTejulius Islas RN18:49 08/08/2020 Started bag #1 1000 mL IV Fluids NS; bolus of 1000 mL over 1 hour(s) via site #1 via IVpump. Allergies verified and confirmed 5 rights. IV patency established. IV site checked: no pain, redness,or swelling. IV flushed thoroughly pre- and post-medication administration. Information revi ewed withpatient. --18:54 08/08/20 Pedro Islas RN18:50 08/08/2020 Toradol (Ketorolac Tromethamine) IVP 30 mg given over 30 second(s) via site #1.Allergies verified and confirmed 5 rights. IV patency established. IV site checked: no pain, redness, orswelling. IV flushed thoroughly pre- and post-medication administration. IVP given by RN. Informationreviewed with patient. --18:55 08/08/20 Pedro Islas RN18:51 08/08/2020 Reglan (Metoclopramide HCl) IVP 10 mg given over 2 minute(s) via site #1. Allergiesverified and confirmed 5 rights. IV patency established. IV site checked: no pain, redness, or swelling. IVflushed thoroughly pre- and post-medication administration. IVP given by RN. Information reviewed withpatient. --18:56 08/08/20 Pedro Islas RNChecked patient name and birthdate: patient confirmed. Blood samples drawn from the right antecubitalspace peripheral IV site by nurse per protocol ; labeled in presence of the patient and sent to lab: arvind. Initial blood discarded. Line flushed with 10 mL normal saline post blood draw (1844). --18:57 08/08/20Pedro Islas KARTHIKcarlos transported to CT by wheelchair with mask and cryptographic technician. (1854). --18:57 08/08/20 HAN Klein19:12 08/08/20. BP: 137/104. MAP: 115. HR: 91. RR: 24. O2 saturation: 100% on room air. --19:121 Pedro RenteriaKARTHIK tongcarlos returned from CT by wheelchair with mask and cryptographic technician. (1909). Patient not waiting forresults. ( 1909 engineering technical analyst called for nurse stating after IV dye pt started shaking and tried to jump off xraytable hard to breathe pt returned to rm 6, pt breathing OK). --19:19 08/08/20 Pedro Islas RN19:23 08/08/2020 Hydroxyzine PO Tablets 25 mg given. Allergies verified and confirmed 5 rights.Information reviewed with patient including sedative warning. --19:23 08/08/20 Pedro Islas RN19:23 08/08/2020 Pepcid (Famotidine) PO Tablets 20 mg given. Allergies verified and confirmed 5 rights.Information reviewed with patient. --19:23 08/08/20 Pedro Islas RN19:28 08/08/2020 Solu-Medrol (methylPREDNISolone Sodium Succ) IVP 125 mg given over 1 minute(s)via site #1. Allergies verified and confirmed 5 rights. IV patency established. IV site checked: no pain,redness, or swelling. IV flushed thoroughly pre- and post-medication administration. IVP given by RN.Information reviewed with patient. --19:28 08/08/20 Pedro Islas RN( 1911 Irving Guerra in with another pt Irene Freeman called and assess pt). --19:29 08/08/20 Pedro Islas RN 4 Clini samantha Report - Nurses [facility] Emergency Department [address] [place] [address] Phone #: ext- [phone] 08/08/2020 17:55 Patient: KEYLA ATWOOD Sex: M : 1980 Age: 40y ( 1928 pt stating feeling better episode passing). --19:29 08/08/20 Pedro Islas RN 19:41 08/08/20. BP: 127/77. MAP: 93. HR: 46. RR: 16. O2 saturation: 99%. --19:41 08/08/20 [employer] 19:57 08/08/20. BP: 133/82. MAP: 99. HR: 44. RR: 16. O2 saturation: 99%. --19:57 08/08/20 [employer] 20:05 08/08/2020 IV Fluids NS via IV site #1 Discontinued: bag #1 completed. Total amount infused: 1000 mL. IV patency established. IV site checked: no pain, redness, or swelling. IV flushed thoroughly. --20:10 08/08/20 Carla Newton R.N. ( Pt feeling better now, IVF completed, saline lock flushed. Awaiting further orders, no needs at this time.). --20:12 08/08/20 Carla Newton R.N. 20:20 08/08/2020 Site #1 removed upon discharge. Catheter intact. Bandage applied. --20:35 08/08/20 Lizabeth Mazariegos R.N.DISPOSITION / DISCHARGE 20:24 08/08/20. BP: 129/66. MAP: 87. HR: 48. RR: 16. O2 saturation: 99%. Temp: 98.3 F. Pain level now: 10/01. --20:24 08/08/20 Jennifer [employer] late entry - 20:34 08/08/20. Departure time: late entry - 20:34 08/08/2020. Condition at departure: improved. No learning barriers present. Discharge instructions provided and reviewed with the patient. Reviewed referral to a primary care physician for followup. Patient verbalized understanding. Written instructions provided in Romanian. The patient was discharged by the physician autopsy assistant. He was discharged home and accompanied by family. He left ambulatory and via private vehicle. Family member driving. --20:36 08/08/20 Lizabeth Mazariegos R.N.Locked/Released at 08/08/2020 20:37 by Lizabeth Mazariegos R.N. Name Value Range Interpretation Code Description Data Thi rce(s) Supporting Document(s) ID Date Data Source [id number] 08/08/2020 06:17:00 PM EST [facility] 1 Clinical Report - Physicians/Mid Levels [facility] Emergency Department [address] [place] [address] Phone #: ext- [phone] 08/08/2020 17:55 Patient: KEYLA ATWOOD Sex: M : 1980 Age: 40y Time Seen: 18:25 08/08/2020. Arrived- By private vehicle. Historian- patient.HISTORY OF PRESENT ILLNESS Chief Complaint: ABDOMINAL PAIN. This started since Apr; Pt states he has had bowel issues since he was a young kid. He has been seen several times in [facility] for this same issue with no results. Pt feels like he needs to defecate all the time with no results. He has c/o cramping and constant irritation with his bowel. Pt is scheduled for a colonoscopy on the .). The patient has had constipation and abdominal pain. and is still present. It was gradual in onset and has been constant. It is described as "pain" and cramping and it is described as located in the right abdomen and left abdomen and in the periumbilical area. At its maximum, severity described as mild. When seen in the E.D., severity described as mild. No naus ea, loss of appetite, vomiting or diarrhea. Similar symptoms previously. Patient has had similar symptoms several times. Recent medical care: The patient was seen recently at another facility in the emergency department.REVIEW OF SYSTEMSThe patient has had constipation but not had weight loss. No black stools, hematemesis, difficulty withurination, pain with urination or urinary frequency. No bloody stools, fever, headache, sore throat orblurred vision. No chest pain, difficulty breathing, cough, joint pain or skin rash. No chills or back pain.Last bowel movement: yesterday.PAST HISTORYProblems:Irritable bowel syndrome (disorder). Additional Surgeries: Adenoidectomy. Medications: Xanax Oral. SEROquel Oral. Allergies: Abilify. Effexor. Lunesta.SOCIAL HISTORYNever smoker. No alcohol use or drug use. 2 Clinical Report - Physicians/Mid Levels [facility] Emergency Department [address] [place] [address] Phone #: ext- [phone] 08/08/2020 17:55 Patient: KEYLA ATWOOD Sex: M : 1980 Age: 40yPHYSICAL EXAMVital Signs: 08/08/2020 18:11 BP: 138/88. MAP: 104. HR: 44. RR: 16. O2 saturation: 100% on room air.Temp: 96.1 F. Pain level now: 01/01. Have been reviewed as abnormal. Bradycardic. Oxygen saturationnormal.Appearance: Alert. Oriented X3. No acute distress.Eyes: Pupils equal, round and reactive to light. Eyes normal inspection.ENT: Ears normal. Nose normal. Pharynx normal.Neck: Normal inspection.CVS: Bradycardia. Normal he art rhythm. Heart sounds normal.Respiratory: No respiratory distress. Breath sounds normal.Abdomen: Soft. Mild tenderness diffusely. Bowel sounds normal. No organomegaly. No mass.Back: Normal inspection.Skin: Skin warm and dry. Normal skin color. No rash. Normal skin turgor.Extremities: Extremities exhibit normal ROM. No lower extremity edema.Neuro: Oriented X 3.LABS, X-RAYS, AND EKGCT Abdomen - Pelvis: Normal study. NAD. Study type: upper abdomen; lower abdomen; pelvis.Abdomen - pelvic CT performed with IV contrast. The study was interpreted by the radiologist andcontemporaneously by me. Interpretation time: 20:17 08/08/2020.Laboratory Tests: Laboratory tests have been ordered, with results reviewed and considered in themedical decision making process. CBC w Diff: (DEMETRIUS: 08/08/2020 18:43) ( MsgRcvd 08/08/2020 18:51) Final results Test Result Flag Units (Reference) CBC W/AUTOMATED DIFF COMPLETE BLOOD COUNT WBC 4.9 10/uL (4.2 - 11.0) RBC 4.55 10/uL (4.50 - 6.30) HEMOGLOBIN 14.2 g/dL (14.0 - 16.0) HEMATOCRIT 41.7 % (41.0 - 51.0) MCV 91.6 fL (80.0 - 94.0) MCH 31.2 pg (27.0 - 34.0) MCHC 34.1 g/dL (31.0 - 36.0) RDW 12.3 % (11.5 - 14.8) PLATELETS 232 10/uL (150 - 450) MPV 10.6 H fL (7.4 - 10.4) NEUT 48.5 % (37.0 - 80.0) LYMPH 36.2 % (25.0 - 40.0) MONO 10.4 H % (3.0 - 8.0) EOS 4.1 % (0.0 - 7.0) BASO 0.6 % (0.0 - 2.0) %IG 0.2 H % (0.0 - 0.0) %NRBC 0.0 % (0.0 - 0.0) #NEUT 2.37 10/uL (2.00 - 6.90) #LYMPH 1.77 10/uL (0.60 - 3.40) #MONO 0.51 10/uL (0.00 - 0.90) #EOS 0.20 10/uL (0.00 - 0.70) #BASO 0.03 10/uL (0.00 - 0.20) #IG 0.01 10/uL (0.00 - 0.10) #NRBC 0.00 10/uL (0.00 - 0.00) MANUAL DIFF NOT INDICATED 3 Clinical Report - Physicians/Mid Levels [facility] Emergency Department [address] [place] [address] Phone #: ext- [phone] 08/08/2020 17:55 Patient: KEYLA ATWOOD Sex: M : 1980 Age: 40y RBC MORPH NOT INDICATED CMP: (DEMETRIUS: 08/08/2020 18:43) ( MsgRcvd 08/08/2020 19:19) Final results Test Result Flag Units (Reference) COMPREHENSIVE METABOLIC PANEL COMPREHENSIVE METABOLIC PANEL SODIUM 137 mEq/L (134 - 153) POTASSIUM 4.0 mEq/L (3.6 - 5.0) CHLORIDE 102 mEq/L (98 - 107) CO2 26 MEQ/L (22 - 30) GLUCOSE 102 H MG/DL (70 - 99) BUN 16 MG/DL (7 - 21) CREATININE 1.0 MG/DL (0.7 - 1.5) BUN/CREAT 16 (8 - 27) TOTAL PROTEIN 7.3 G/DL (6.3 - 8.2) ALBUMIN 4.7 G/DL (3.9 - 5.0) GLOBULIN 2.6 GM/DL (2.4 - 3.2) A/G RATIO 1.8 (0.8 - 2.0) CALCIUM 9.2 MG/DL (8.4 - 10.2) TOTAL BILI <0.7 MG/DL (0.2 - 1.3) ALKALINE PHOS 62 U/L (38 - 126) SGOT/AST 17 U/L (5 - 40) SGPT/ALT 12 U/L (7 - 56) ANION GAP 9.0 mmol/L (8.0 - 16.0) AGE 40 yrs NON-AA GFR >60 mL/min AFR AMER GFR >60 mL/min Male GFR Interprentation 20-49 yrs >60 mL/min Normal 50-59 yrs >56 mL/min Normal 60-69 yrs >49 mL/min Normal 70-79yrs >42 mL/min Normal 80 and above >35 mL/min Normal Female GFR Interpretation 20-39 yrs >60 mL/min Normal 40-49 yrs >58 mL/min Normal 50-59 yrs >51 mL/min Normal 60-69 yrs >45 mL/min Normal 70-79 yrs >39 mL/min Normal 80 and above >32 mL/min Normal Lipase: (DEMETRIUS: 08/08/2020 18:43) ( [facility] 08/08/[place] 19:18) Final results Test Result Flag Units (Reference) LIPASE 35 U/L (13 - 60) Lactic Acid: (DEMETRIUS: 08/08/2020 18:43) ( [facility] 08/08/[place] 19:07) Final results Test Result Flag Units (Reference) LACTIC ACID 1.1 MMOL/L (0.2 - 2.2) CT Abd PEL W/ IV Contrast Only: (DEMETRIUS: 08/08/2020 18:31) ( [facility] [place]/08[place] 19:17) In Progress CT ABD Reason(s): Abdominal Pain TRANSPORTATION: IV? IV?(Yes) O2? Oxygen?(No) Ro.PROGRESS AND PROCEDURESCourse of Care: 20:18 Aug 08 2020. Evaluation after observation. (Discussed Ct results, labs, fairamount of stool throughout but none in rectum. Pt has C-scope scheduled for the and instructed to 4 Clinical Report - Physicians/Mid Levels [facility] Emergency Department [address] [place] [address] Phone #: [phone] 08/08/2020 17:55 Patient: KEYLA ATWOOD Sex: M : 1980 Age: 40y return to ED if s/s worsen or if fever develops.). Patient counseled in person regarding the patient's stable condition, test results, diagnosis and need for follow-up. Patient agrees with plan of care. 20:Aug 08 2020. Disposition: Discharged home in good and improved condition (20:Aug 08 2020).CLINICAL IMPRESSION Chronic generalized abdominal pain of unknown cause. ConstipationINSTRUCTIONS Drink plenty of fluids. (Continue taking Miralax as prescribed.). Warnings: Further evaluation is necessary in order to conduct further tests. It is very important to follow up with a healthcare provider. GENERAL WARNINGS: Return or contact your physician immediately if your condition worsens or changes unexpectedly, if not improving as expected, or if other problems arise. SPECIFICALLY, return if you develop the inability to keep fluids down, blood in diarrhea, fainting or lightheadedness; or if there is no improvement in the pain in the abdomen. Your Current Medications: Your current home medications have been reviewed. CONTINUE TAKING THE FOLLOWING MEDICATIONS: SEROquel Oral. Xanax Oral. Follow-up: Follow up with a specialist as scheduled. Reason for referral: evaluation and treatment. Summary of care provided to patient. Understanding of the discharge instructions verbalized by patient.(Electronically signed by URIAH Lucio 08/08/2020 21:34) 5Clinical Report - Physicians/Mid Levels [facility] Emergency Department [address] [place] [address] Phone #: ext- [phone] 08/08/2020 17:55--------- Patient: KEYLA ATWOOD Sex: M : 1980 Age: 40y Name Value Range Interpretation Code Description Data Thi rce(s) Supporting Document(s) ID Date Data Source [id number] 08/08/2020 07:19:00 PM EST [facility] Name Value Range Interpretation Code Description Data Thi rce(s) Supporting Document(s) COMPREHENSIVE METABOLIC PANEL [facility] COMPREHENSIVE METABOLIC PANEL Sodium [Moles/volume] in Serum or Plasma 137 mEq/L 134 - 153 [facility] Potassium [Moles/volume] in Serum or Plasma 4.0 mEq/L 3.6 - 5.0 [facility] Chloride [Moles/volume] in Serum or Plasma 102 mEq/L 98 - 107 [facility] Carbon dioxide, total [Moles/volume] in Serum or Plasma 26 MEQ/L 22 - 30 [facility] Glucose [Mass/volume] in Serum or Plasma 102 MG/DL 70 - 99 H [facility] BUN 16 MG/DL 7 - 21 [facility] Creatinine [Mass/volume] in Serum or Plasma 1.0 MG/DL 0.7 - 1.5 [facility] BUN/CREAT 16 8 - 27 [facility] Protein [Mass/volume] in Serum or Plasma 7.3 G/DL 6.3 - 8.2 [facility] Albumin [Mass/volume] in Serum or Plasma 4.7 G/DL 3.9 - 5.0 [facility] Globulin [Mass/volume] in Serum by calculation 2.6 GM/DL 2.4 - 3.2 [facility] A/G RATIO 1.8 0.8 - 2.0 [facility] Calcium [Mass/volume] in Serum or Plasma 9.2 MG/DL 8.4 - 10.2 [facility] Bilirubin.total [Mass/volume] in Serum or Plasma <0.7 MG/DL 0.2 - 1.3 [facility] Alkaline phosphatase [Enzymatic activity/volume] in Serum or Plasma 62 U/L 38 - 126 [facility] Aspartate aminotransferase [Enzymatic activity/volume] in Serum or Plasma 17 U/L 5 - 40 [facility] Alanine aminotransferase [Enzymatic activity/volume] in Seru m or Plasma 12 U/L 7 - 56 [facility] Anion gap 3 in Serum or Plasma 9.0 mmol/L 8.0 - 16.0 [facility] AGE 40 yrs [facility] NON-AA GFR >60 mL/min [facility] AFR AMER GFR >60 mL/min [facility] Male GFR In terprentation 20-49 yrs >60 mL/min Normal 50-59 yrs >56 mL/min Normal 60-69 yrs >49 mL/min Normal 70-79yrs >42 mL/min Normal 80 and above >35 mL/min Normal Female GFR Interpretation 20-39 yrs >60 mL/min Normal 40-49 yrs >58 mL/min Normal 50-59 yrs >51 mL/min Normal 60-69 yrs >45 mL/min Normal 70-79 yrs >39 mL/min Normal 80 and above >32 mL/min Normal ID Date Data Source [id number] 08/08/2020 07:18:00 PM [facility] Name Value Range Interpretation Code Description Data Thi rce(s) Supporting Document(s) Lipase [Enzymatic activity/volume] in Serum or Plasma 35 U/L 13 - 60 [facility] ID Date Data Source [id number] 08/08/2020 07:07:00 PM [facility] Name Value Range Interpretation Code Description Data Thi rce(s) Supporting Document(s) Lactate [Moles/volume] in Serum or Plasma 1.1 MMOL/L 0.2 - 2.2 [facility] ID Date Data Source [id number] 08/08/2020 06:51:00 PM [facility] Name Value Range Interpretation Code Description Data Thi rce(s) Supporting Document(s) CBC W/AUTOMATED DIFF [facility] COMPLETE BLOOD COUNT Leukocytes [#/volume] in Blood by Automated count 4.9 10^3/uL 4.2 - 1 1.0 [facility] Erythrocytes [#/volume] in Blood by Automated count 4.55 10^6/uL 4. 50 - 6.30 [facility] Hemoglobin [Mass/volume] in Blood 14.2 g/dL 14.0 - 16.0 [facility] Hematocrit [Volume Fraction] of Blood by Automated count 41.7 % 4 1.0 - 51.0 [facility] Erythrocyte mean corpuscular volume [Entitic volume] by Auto mated count 91.6 fL 80.0 - 94.0 [facility] Erythrocyte mean corpuscular hemoglobin [Entitic mass] by Automated count 31.2 pg 27.0 - 34.0 [facility] Erythrocyte mean corpuscular hemoglobin concentration [Mass/volume] by Automated count 34.1 g/dL 31.0 - 36.0 [facility] Erythrocyte distribution width [Ratio] by Automated count 12.3 % 11.5 - 14.8 [facility] Platelets [#/volume] in Blood by Automated count 232 10^3/uL 150 - 45 0 [facility] Platelet mean volume [Entitic volume] in Blood by Automated count 10.6 fL 7.4 - 10.4 H [facility] Neutrophils/100 leukocytes in Blood by Automated count 48.5 % 37. 0 - 80.0 [facility] Lymphocytes/100 leukocytes in Blood by Manual count 36.2 % 25.0 - 40.0 [facility] Monocytes/100 leukocytes in Blood by Automated count 10.4 % 3.0 - 8.0 H [facility] Eosinophils/100 leukocytes in Blood by Automated count 4.1 % 0.0 - 7.0 [facility] Basophils/100 leukocytes in Blood by Automated count 0.6 % 0.0 - 2.0 [facility] %IG 0.2 % 0.0 - 0.0 [facility] %[facility] 0.0 % 0.0 - 0.0 [facility] al Neutrophils [#/volume] in Blood by Automated count 2.37 10^3/uL 2.00 - 6.90 [facility] Lymphocytes [#/volume] in Blood by Automated count 1.77 10^3/uL 0.60 - 3.40 [facility] Monocytes [#/volume] in Blood by Automated count 0.51 10^3/uL 0.00 - 0.90 [facility] Eosinophils [#/volume] in Blood by Automated count 0.20 10^3/uL 0.00 - 0.70 [facility] Basophils [#/volume] in Blood by Automated count 0.03 10^3/uL 0.00 - 0.20 [facility] #IG 0.01 10^3/uL 0.00 - 0.10 [facility] #NRBC 0.00 10^3/uL 0.00 - 0.00 [facility] MANUAL DIFF NOT INDICATED [facility] RBC MORPH NOT INDICATED [facility] ID Date Data Source [id number] 08/01/2020 11:37:00 AM EST [facility] Name Value Range Interpretation Code Description Data Thi rce(s) Supporting Document(s) HGBA1C 5.2 % 3.8-5.6 [facility] Diabetic > or = to 6.5%Prediabetes 5.7-6 .4%Normal <5.7 ESTIMATED AVERAGE GLUCOSE 102.5 mg/dL [facility] ID Date Data Source [id number] 07/31/2020 12:09:00 PM EST [facility] Name Value Range Interpretation Code Description Data Thi rce(s) Supporting Document(s) MICHELLE DIRECT Negative Negative [facility] Performed at: - [facility] [place] [id number] Director: Nette Iqbal MD, Phone: [phone] ID Date Data Source [id number] 07/31/2020 12:05:00 PM EST [facility] Name Value Range Interpretation Code Description Data Thi rce(s) Supporting Document(s) MICHELLE Direct Negative Negative [facility] ID Date Data Source [id number] 07/30/2020 11:30:00 AM EST [facility] Name Value Range Interpretation Code Description Data Thi rce(s) Supporting Document(s) C REACTIVE PROTEIN 0.5 mg/L 0.0-3.0 [facility] ID Date Data Source [id number] 07/30/2020 11:30:00 AM EST [facility] Name Value Range Interpretation Code Description Data Thi rce(s) Supporting Document(s) CHOLESTEROL 187 mg/dL 0-200 [facility] TRIGLYCERIDES 1072 mg/dL 0-150 *H [facility] CALCULATED LDL MAY NOT BE VALID WHEN TRI GLYCERIDE IS GREATERTHAN 400 MG/dL. HDL CHOLESTEROL 24 mg/dL 40-60 [facility] CHOL/HDL RATIO 7.8 0.0-5.0 H [facility] ID Date Data Source [id number] 07/30/2020 11:30:00 AM EST [facility] Name Value Range Interpretation Code Description Data Thi rce(s) Supporting Document(s) GLUCOSE 113 mg/dL 74-106 H [facility] BLOOD UREA NITROGEN 12 mg/dL 7-18 [facility] ital CREATININE 1.01 mg/dL 0.7-1.3 [facility] SODIUM 140 mmol/L 136-145 [facility] mmol/L POTASSIUM 4.6 mmol/L 3.5-5.1 [facility] CHLORIDE 103 mmol/L 98-107 [facility] CO2 28 mmol/L 21-32 [facility] CALCIUM 9.5 mg/dL 8.5-10.1 [facility] ANION GAP 9.0 mmol/L 5-12 [facility] GLOMERULAR FILTRATION RATE 82 mL/min [facility] GFR IS CALCULATED IN mL/min/1.73m2 DENIS L FUNCTION: >90MILDLY DECREASED: 60-89MILDY TO MODERATELY DECREASED: 45-59 MODERATELY TO SEVERELY DECREASED: 30-44SEVERELY DECREASED: 15-29RENAL FAILURE: <15 AST 23 U/L 15-37 [facility] ALT 20 U/L 12-78 [facility] ALKALINE PHOSPHATASE 76 U/L 46-116 [facility] pital TOTAL BILIRUBIN 0.2 mg/dL 0.2-1.0 [facility] TOTAL PROTEIN 7.7 g/dl 6.4-8.2 [facility] ALBUMIN 4.4 gm/dL 3.4-5.0 [facility] ID Date Data Source [id number] 07/30/2020 10:51:00 AM [facility] Name Value Range Interpretation Code Description Data Thi [facility](s) Supporting Document(s) ERYTHROCYTE SEDIMENTATION RATE 2 mm/hr 0-15 [facility] ID Date Data Source [id number] 07/30/2020 09:51:00 AM [facility] Name Value Range Interpretation Code Description Data Thi [facility](s) Supporting Document(s) WHITE BLOOD COUNT 6.3 K/mm3 4.0-10.[address] [facility] al RED BLOOD COUNT 4.71 M/mm3 4.50-6.00 [facility] HEMOGLOBIN 15.2 gm/dL 14.0-18.0 [facility] HEMATOCRIT 43.0 % 42.0-54.0 [facility] MEAN CELL VOLUME 91.3 fl 80-96 [facility] MEAN CORPUSCULAR HEMOGLOBIN 32.3 pg 27.0-31.0 H [facility] MEAN CORPUSCULAR HGB CONC 35.3 g/dl 32.0-36.0 [facility] RED CELL DISTRIBUTION WIDTH 12.4 % 10.0-14.5 [facility] PLATELET COUNT 247 K/mm3 172-450 [facility] MEAN PLATELET VOLUME 10.4 fl 9.0-13.0 [facility] pital GRAN % 43.6 % 50-80.0 L [facility] IG% 0.0 % 0.0-0.2 [facility] LYMPH % 42.9 % 25.0-50.0 [facility] MONO % 10.2 % 2.0-10.0 H [facility] EOS % 3.0 % 0-5.0 [facility] BASO % 0.3 % 0.0-2.0 [facility] GRAN # 2.7 K/mm3 2.0-8.00 [facility] IG# 0.0 K/mm3 0.0-0.2 [facility] LYMPH # 2.7 K/mm3 1.0-5.0 [facility] MONO # 0.6 K/mm3 0.10-1.20 [facility] EOS # 0.2 K/mm3 0.0-0.5 [facility] BASO # 0.0 K/mm3 0.0-0.2 [facility] ID Date Data Source [id number] 07/30/2020 10:27:00 AM [facility] Name Value Range Interpretation Code Description Data Thi rce(s) Supporting Document(s) FREE T4 0.9 ng/dL 0.76-1.46 [facility] ID Date Data Source [id number] 07/30/2020 10:27:00 [facility] Name Value Range Interpretation Code Description Data Thi rce(s) Supporting Document(s) TSH 6.422 uIU/mL 0.36-3.74 H [facility] ID Date Data Source [id number] 07/15/2020 06:30:00 AM EST [facility] Patient: KEYLA ATWOOD Observation Re port - Physicians/Mid Levels [facility].VisitID: [id number] [place] [address] [phone], MRegistration Date/Time: 07/15/2020 05:21 Weight:75.7 kg (S). Height/Length:71 inches (S). BMI:23.3 PAST HISTORYMedications:Bone broth protein 1 scoop, daily as needed, last dose 2 days ago.Fish Oil Oral (Capsule 1000 mg) 1 capsule, daily as needed, every PM, last dose last night.Fo/ti 1-2 tsp , daily as needed, last dose yesterday (male hormone).Medi herb 1 capsule, daily, last dose yesterday.Nettle (Urtica Dioica) Oral 1 capsuel , daily as needed, last dose yesterday.SEROquel Oral (Tablet 50 mg) 1 tablet, daily as needed, at bedtime, last dose weeks ago.Shitake mushrooms 1-2 capsule , daily as needed, before meals, last dose yesterday (in a capsule ).Xanax Oral 0.25 mg, daily as needed, at bedtime, last dose 1 month ago.Zeolite, last dose april ((Heavy metal detox)). Allergies:ARIPiprazol e.Venlafaxine.Wheat Extract. FAMILY HISTORYNegative - denies family medical history. (Electronically signed by Haim Ball MD 07/15/2020 06:28) Name Value Range Interpretation Code Description Data [facility] Supporting Document(s) ID Date Data Source [id number] 07/15/2020 06:22:00 AM EST [facility] DATE OF EXAMINATION: 07/15/2020 5:44 EST TECHNIQUE: Single supine view of the abdomen were obtained. HISTORY: Constipation and abdominal pain FINDINGS:Bowel gas pattern is nonspecific and without obstruction or perforation. Mildfecal stasis is suggested and should be correlated clinically. No organomegaly.No foreign body. No significant calcifications (phleboliths noted in thepelvis). Skeletal structures are age-appropriate. IMPRESSION: Nonspecific bowel gas pattern.Mild fecal stasis. Electronically signed in PS360 by: Dinesh Mohan M.D. 07/15/2020 6:16 EST Name Value Range Interpretation Code Description Data [facility] Supporting Document[facility]s) ID Date Data Source [id number] REFLEX 07/15/2020 05:47:00 AM EST [facility] TSYSORDER [id number] Name Value Range Interpretation Code Description Data [facility] Supporting Document(s) URINE RBC 0-2 /hpf 0-3 [facility] URINE WBC 0-2 /hpf 0-5 [facility] URINE BACTERIA 1+ NONE SEEN [facility] URINE MUCUS 1+ NEGATIVE H [facility] URINE AMORPHOUS SEDIMENT 4+ [facility] ID Date Data Source [id number] REFLEX 07/15/2020 05:40:00 AM [facility] ital TSYSORDER [id number] Name Value Range Interpretation Code Description Data Thi rce(s) Supporting Document(s) URINE COLOR. YELLOW [facility] URINE APPEARANCE CLOUDY [facility] l URINE GLUCOSE (UA) NEGATIVE mg/dL NEGATIVE [facility] URINE BILIRUBIN NEGATIVE NEGATIVE [facility] URINE KETONE NEGATIVE mg/dL NEGATIVE [facility] SPECIFIC GRAVITY,URINE 1.020 1.001-1.035 [facility] URINE BLOOD NEGATIVE NEGATIVE [facility] PH,URINE 8.5 5.0-9.0 [facility] URINE PROTEIN 1+(30) mg/dL NEGATIVE H [facility] l URINE UROBILINOGEN NORMAL(0.2-1) mg/dL 0-1 [facility] URINE NITRATE NEGATIVE NEGATIVE [facility] URINE LEUKOCYTE ESTERASE NEGATIVE NEGATIVE [facility] ID Date Data Source [id number] 07/05/2020 01:24:00 PM [facility] Patient: KEYLA ATWOOD Re port - Physicians/Mid Levels [place].VisitID: [id number] [place] [address] [phone], MRegistration Date/Time: 07/05/2020 07:13 Weight:70.7 kg (S). Height/Length:70 inches (S). BMI:22.4 FAMILY HISTORYNo significant family medical history. (Electronically signed by Inocente Queen PA 07/05/2020 13:21) Name Value Range Interpretation Code Description Data Thi rce(s) Supporting Document(s) ID Date Data Source [id number] 07/05/2020 10:44:00 AM EST [facility] SCAN OF THE ABDOMEN AND PELVIS WITH C ONTRAST DATE OF EXAMINATION: 07/05/2020 7:44 EST ABD/PEL WITH IV CONTRAST INDICATION: Abdominal pain, constipation COMPARISON: 02/14/2017 CONTRAST: 75 cc Omnipaque 300 TECHNIQUE: Axial images were obtained through the abdomen and pelvis from thelung bases through the rectum following the intravenous injection of contrast. One or more of the following dose reduction techniques were utilized ineffectively lowering the radiation dose for this examination: Automated ExposureControl, Adjustment of the mA and/or kV according to patient size, or Iterativereconstruction. ABDOMEN FINDINGS: The lung bases appear unremarkable. Liver, spleen, pancreas,adrenal glands, and left kidney appear normal. There is a 1.8 cm cyst in theupper pole the right kidney. Abdominal aorta is unremarkable. No adenopathy,ascites, or abnormal intra-abdominal masses are identified. Visualized stomach,small bowel, and colon are unremarkable. PELVIC FINDINGS: No adenopathy, ascites, or abnormal pelvic masses areidentified. The visualized bowel and urinary bladder are unremarkable. IMPRESSION: No acute intra- abdominal process Electronically signed in PS360 by: Amaury Augustine M.D. 07/05/2020 10:39 EST Name Value Range Interpretation Code Description Data [facility](s) Supporting Document(s) ID Date Data Source [id number] 07/05/2020 08:48:00 AM EST [facility] l TSYSORDER [id number] Name Value Range Interpretation Code Description Data [facility](s) Supporting Document(s) GLUCOSE 85 mg/dL 74-106 [facility] BLOOD UREA NITROGEN 20 mg/dL 7-18 H [facility] ital CREATININE 1.1 mg/dL 0.7-1.3 [facility] SODIUM 138 mmol/L 136-145 [facility] POTASSIUM 4.2 mmol/L 3.5-5.1 [facility] CHLORIDE 101 mmol/L 98-107 [facility] CO2 29 mmol/L 21-32 [facility] CALCIUM 9.3 mg/dL 8.5-10.1 [facility] ANION GAP 8.0 mmol/L 5-12 [facility] GLOMERULAR FILTRATION RATE 75 mL/min [facility] GFR IS CALCULATED IN mL/min/1.73m2 DENIS L FUNCTION: >90MILDLY DECREASED: 60-89MILDY TO MODERATELY DECREASED: 45-59 MODERATELY TO SEVERELY DECREASED: 30-44SEVERELY DECREASED: 15-29RENAL FAILURE: <15 AST 14 U/L 15-37 L [facility] ALT 25 U/L 12-78 [facility] ALKALINE PHOSPHATASE 69 U/L 46-116 [facility] pital TOTAL BILIRUBIN 0.3 mg/dL 0.2-1.0 [facility] TOTAL PROTEIN 8.1 g/dl 6.4-8.2 [facility] ALBUMIN 4.4 gm/dL 3.4-5.0 [facility] ID Date Data Source [id number] 07/05/2020 08:29:00 AM [facility] ital TSYSORDER [id number] Name Value Range Interpretation Code Description Data Thi rce(s) Supporting Document(s) URINE COLOR. YELLOW [facility] URINE APPEARANCE CLEAR [facility] l URINE GLUCOSE (UA) NEGATIVE mg/dL NEGATIVE [facility] URINE BILIRUBIN NEGATIVE NEGATIVE [facility] URINE KETONE NEGATIVE mg/dL NEGATIVE [facility] SPECIFIC GRAVITY,URINE 1.025 1.001-1.035 [facility] URINE BLOOD NEGATIVE NEGATIVE [facility] PH,URINE 7.0 5.0-9.0 [facility] URINE PROTEIN NEGATIVE mg/dL NEGATIVE [facility] URINE UROBILINOGEN NORMAL(0.2-1) mg/dL 0-1 [facility] URINE NITRATE NEGATIVE NEGATIVE [facility] URINE LEUKOCYTE ESTERASE NEGATIVE NEGATIVE [facility] ID Date Data Source [id number] 07/05/2020 08:27:00 AM [facility] l TSYSORDER [id number] Name Value Range Interpretation Code Description Data Thi rce(s) Supporting Document(s) WHITE BLOOD COUNT 6.5 K/mm3 4.0-10.[address] [facility] al RED BLOOD COUNT 4.80 M/mm3 4.50-6.00 [facility] HEMOGLOBIN 14.8 gm/dL 14.0-18.0 [facility] HEMATOCRIT 43.9 % 42.0-54.0 [facility] MEAN CELL VOLUME 91.5 fl 80-96 [facility] MEAN CORPUSCULAR HEMOGLOBIN 30.8 pg 27.0-31.0 [facility] MEAN CORPUSCULAR HGB CONC 33.7 g/dl 32.0-36.0 [facility] RED CELL DISTRIBUTION WIDTH 12.4 % 10.0-14.5 [facility] PLATELET COUNT 244 K/mm3 172-450 [facility] MEAN PLATELET VOLUME 11.0 fl 9.0-13.0 [facility] pital GRAN % 40.1 % 50-80.0 L [facility] IG% 0.0 % 0.0-0.2 [facility] LYMPH % 46.6 % 25.0-50.0 [facility] MONO % 11.1 % 2.0-10.0 H [facility] EOS % 1.9 % 0-5.0 [facility] BASO % 0.3 % 0.0-2.0 [facility] GRAN # 2.6 K/mm3 2.0-8.00 [facility] IG# 0.0 K/mm3 0.0-0.2 [facility] LYMPH # 3.0 K/mm3 1.0-5.0 [facility] MONO # 0.7 K/mm3 0.10-1.20 [facility] EOS # 0.1 K/mm3 0.0-0.5 [facility] BASO # 0.0 K/mm3 0.0-0.2 [facility] ID Date Data Source [id number] 07/02/2020 12:00:00 AM EST [facility] Name Value Range Interpretation Code Description Data Thi rce(s) Supporting Document(s) 2019-nCoV RNA XXX KARIN+probe-Imp [facility] This lab was ordered by [facility] and reported by [employer]. ID Date Data Source [id number] 04/08/2020 06:38:00 PM EDT [facility] Patient: KEYLA ATWOOD Observation Re port - Physicians/Mid Levels [place].VisitID: [id number] [place] [address] [phone], MRegistration Date/Time: 04/08/2020 16:26 Weight:75.7 kg (S). Height/Length:108 inches (S). BMI:10.1 PAST HISTORYProblems:Cluster Headache [Chronic].Anxiety Reaction [Chronic].Hypothyroidism [Chronic].Irritable bowel syndrome (disorder) [Chronic].Amblyopia [Chronic]. (Right)Anxiety Reaction [Chronic].Lupus [Chronic].Chest Pain.Abdominal Pain.Irritable bowel syndrome (disorder).Intestinal parasites [Resolved].Hypothyroidism [Resolved].Bipolar Disorder [Resolved].Bronchitis [Resolved].Allergic Rhinitis [Resolved].Tension-Type Headache [Resolved].Urinary Retention [Resolved].Obsessive Compulsive Disorder [Resolved].Headache [Recurrent].Paresthesia [Recurrent]. Additional Surgeries:Appendectomy. Medications:Bone broth protein 1 scoop, daily as needed, last dose 2 days ago.Fish Oil Oral (Capsule 1000 mg) 1 capsule, daily as needed, every PM, last dose last night.Fo/ti 1-2 tsp , daily as needed, last dose this am (male hormone).Medi herb 1 capsule, daily, last dose this am.Nettle (Urtica Dioica) Oral 1 capsuel , daily as needed, last dose today .SEROquel Oral (Tablet 50 mg) 1 tablet, daily as needed, at bedtime, last dose 2 days ago.Shitake mushrooms 1-2 capsule , daily as needed, last dose this am (in a capsule ).Xanax Oral 0.25 mg, daily as needed, at bedtime, last dose 2 days ago.Zeolite, last dose 2 months ago ((Heavy metal detox)). Allergies:Ambien. (palpitations)ARIPiprazole. (palpitations)CELABREX.(SOB) (joint pain)Gluten Meal.Venlafaxine.(swelling) ("made my internal organs go nuts" ). FAMILY HISTORYNo significant family medical history. (Electronically signed by Rekha Wiggins, PNoemi 04/08/2020 18:35) Name Value Range Interpretation Code Description Data [facility] Supporting Document(s) ID Date Data Source [id number] 04/08/2020 05:33:00 PM EDT [facility]: [facility]ST 1 VIEW DATE AND TIME: 16:57 EDT HISTORY: Chest pain COMPARISON: Chest x-ray 11/09/2017 TECHNIQUE: Portable AP chest x-ray. Findings: Lungs are clear. Cardiomediastinal contours are normal. Visualizedosseous structures are intact. IMPRESSION: No acute disease. Electronically signed in PS360 by: Eric Miranda 04/08/2020 17:27 EDT Name Value Range Interpretation Code Description Data [facility] rce(s) Supporting Document(s) ID Date Data Source [id number] 04/08/2020 06:07:00 PM EDT [facility] TSYSORDER [id number] Name Value Range Interpretation Code Description Data [facility] rce(s) Supporting Document(s) URINE COLOR. [facility] URINE APPEARANCE CLEAR [facility] SPECIFIC GRAVITY,URINE 1.025 1.001-1.035 [facility] URINE LEUKOCYTE ESTERASE NEGATIVE NEGATIVE [facility] URINE NITRATE NEGATIVE NEGATIVE [facility] PH,URINE 6.0 5.0-9.0 [facility] URINE PROTEIN NEGATIVE mg/dL NEGATIVE [facility] URINE GLUCOSE (UA) NEGATIVE mg/dL NEGATIVE [facility] URINE KETONE NEGATIVE mg/dL NEGATIVE [facility] URINE UROBILINOGEN NORMAL(0.2-1) mg/dL 0-1 [facility] URINE BILIRUBIN NEGATIVE NEGATIVE [facility] URINE BLOOD NEGATIVE NEGATIVE [facility] ID Date Data Source [id number] 04/08/2020 05:45:00 PM EDT [facility] l TSYSORDER [id number] Name Value Range Interpretation Code Description Data Thi rce(s) Supporting Document(s) URINE AMPHETAMINES NEGATIVE <1000 ng/mL [facility] pital THC,URINE NEGATIVE <50 ng/mL [facility] URINE BARBITURATES NEGATIVE <300 ng/mL [facility] ital PCP,URINE NEGATIVE <25 ng/mL [facility] COCAINE, URINE NEGATIVE <300 ng/mL [facility] URINE,OPIATES NEGATIVE <300 ng/mL [facility] URINE,TCA NEGATIVE <1000 ng/mL [facility] IF A NEGATIVE RESULT IS OBTAINED AND ING ESTION OF TRICYCLICANTIDEPRESSANTS IS SUSPECTED, A SERUM SAMPLE SHOULD BEOBTAINED AND TESTED USING AN APPROPRIATE METHOD. URINE BENZODIAZEPINES NEGATIVE <300 ng/mL [facility] THESE TESTS ARE PERFORMED USING AN IMMU NOASSAY FOR THEQUALITATIVE DETERMINATION OF THE PRESENCE OF THE MAJORMETABOLITES OF DRUGS OF ABUSE. THESE TESTS ARE ONLY ASCREENING AND NOT CONFIRMATORY. CLINICAL CONSIDERATION ANDPROFESSIONAL JUDGMENT MUST BE APPLIED TO ANY DRUG OF ABUSETEST RESULT. ID Date Data Source [id number] 04/08/2020 06:09:00 PM EDT [facility] l TSYSORDER [id number] Name Value Range Interpretation Code Description Data Thi rce(s) Supporting Document(s) LITHIUM < 0.2 mmol/L 0.6-1.2 [facility] ID Date Data Source [id number] 04/08/2020 06:00:00 PM EDT [facility] l TSYSORDER [id number] Name Value Range Interpretation Code Description Data Thi rce(s) Supporting Document(s) PARTIAL THROMBOPLASTIN TIME 24.7 SECONDS 21.4-30.2 [facility] ID Date Data Source [id number] 04/08/2020 06:00:00 PM EDT [facility] TSYSORDER [id number] Name Value Range Interpretation Code Description Data Thi rce(s) Supporting Document(s) PROTHROMBIN TIME (PATIENT) 11.0 SECONDS 9.2-11.6 [facility] INR 1.06 0.87-1.06 [facility] ID Date Data Source [id number] 04/08/2020 06:00:00 PM EDT [facility] TSYSORDER [id number] Name Value Range Interpretation Code Description Data Thi rce(s) Supporting Document(s) WHITE BLOOD COUNT 5.9 K/mm3 4.0-10.0 [facility] RED BLOOD COUNT 4.79 M/mm3 4.50-6.00 [facility] HEMOGLOBIN 14.8 gm/dL 14.0-18.0 [facility] HEMATOCRIT 43.6 % 42.0-54.0 [facility] MEAN CELL VOLUME 91.0 fl 80-96 [facility] MEAN CORPUSCULAR HEMOGLOBIN 30.9 pg 27.0-31.0 [facility] MEAN CORPUSCULAR HGB CONC 33.9 g/dl 32.0-36.0 [facility] RED CELL DISTRIBUTION WIDTH 12.8 % 10.0-14.5 [facility] PLATELET COUNT 240 K/mm3 172-450 [facility] MEAN PLATELET VOLUME 11.3 fl 9.0-13.0 [facility] pital GRAN % 52.7 % 50-80.0 [facility] IG% 0.2 % 0.0-0.2 [facility] LYMPH % 34.9 % 25.0-50.0 [facility] MONO % 10.6 % 2.0-10.0 H [facility] EOS % 1.4 % 0-5.0 [facility] BASO % 0.2 % 0.0-2.0 [facility] GRAN # 3.1 K/mm3 2.0-8.00 [facility] IG# 0.0 K/mm3 0.0-0.2 [facility] LYMPH # 2.1 K/mm3 1.0-5.0 [facility] MONO # 0.6 K/mm3 0.10-1.20 [facility] EOS # 0.1 K/mm3 0.0-0.5 [facility] BASO # 0.0 K/mm3 0.0-0.2 [facility] ID Date Data Source [id number] 04/08/2020 05:57:00 PM EDT [facility] TSYSORDER [id number] R [id number] 798428PLWUTXCAQ 961024IHNRJPUFA 206502YYREKYXTS [id number] 925946NCIHLGSSS [id number] [id number] Name Value Range Interpretation Code Description Data Thi rce(s) Supporting Document(s) ACETAMINOPHEN LEVEL < 2.0 mcg/mL 10-30 L [facility] ID Date Data Source [id number] 04/08/2020 05:57:00 PM EDT [facility] TSYSORDER [id number] R [id number] 237296QBDYGTQNG 337547CHLHFZBFB 524516XZENAHRMP 748774CMTVFSPNW 137140TVLOFLCCC 195948ALOXIQVMD [id number] Name Value Range Interpretation Code Description Data Thi rce(s) Supporting Document(s) ETHYL ALCOHOL 0.00 % 0-0.01 [facility] ID Date Data Source [id number] 04/08/2020 05:54:00 PM EDT [facility] TSYSORDER [id number] R [id number] [id number] 228585GPUOAGKYM 666215RCOPCKIVQ 457302KIEXOSWKS 540628OOMNCPODB 609408PPPBLWTFE [id number] Name Value Range Interpretation Code Description Data Thi rce(s) Supporting Document(s) SALICYLATE < 3.0 mg/dL 2.8-20.0 [facility] ID Date Data Source [id number] 04/08/2020 05:57:00 PM EDT [facility] TSYSORDER [id number] R 329916LVCFYLXEM [id number] 347442AIOYEOTEW 205273WWXLWEAEO 941131WNNFYGTFD 190972RVGWTIWLY 920440JSWPUOCZY [id number] Name Value Range Interpretation Code Description Data Thi rce(s) Supporting Document(s) CARBAMAZEPINE (TEGRETOL) < 2.0 ug/ml 4.0-12.0 [facility] ID Date Data Source [id number] 04/08/2020 05:57:00 PM EDT [facility] TSYSORDER [id number] R [id number] [id number] 753305LUJRHLVNG 670208KLCUQJAOL 084167PCPYLWLTC 378518XHJEDZLAT 527624LPKFKLAEE [id number] Name Value Range Interpretation Code Description Data Thi rce(s) Supporting Document(s) DILANTIN/PHENYTOIN < 0.5 ug/ml 10.0-20.0 [facility] ID Date Data Source [id number] 04/08/2020 05:54:00 PM EDT [facility] TSYSORDER [id number] R 467398YPZFDXOOJ 723270CHJBEVAHH 189215YIGQMWRWH [id number] 601281TQIANWPKB 633945QABVZMWBE 978518JBGHPCLKE [id number] Name Value Range Interpretation Code Description Data Thi rce(s) Supporting Document(s) MAGNESIUM 2.2 mg/dL 1.8-2.4 [facility] ID Date Data Source [id number] 04/08/2020 05:57:00 PM EDT [facility] TSYSORDER [id number] R 784656PCMVKSNIT 673210OWLNEHEZT 582938NCGAIOEQJ 738401WGVHIOXGZ 912297DUZUBGAGB 316674JGUAFOMWR [id number] [id number] Name Value Range Interpretation Code Description Data Thi rce(s) Supporting Document(s) TROPONIN I < 0.017 ng/mL 0.0-0.056 [facility] ID Date Data Source [id number] 04/08/2020 05:54:00 PM EDT [facility] TSYSORDER [id number] R 607561PWWNZRVNO 731518YVUWUBNPS [id number] 086663QJUQAWFNY 139706LMILCKKEJ [id number] 320883QCVXUJGKZ [id number] Name Value Range Interpretation Code Description Data Thi rce(s) Supporting Document(s) CREATINE PHOSPHOKINASE 88 U/L 39-308 [facility] ID Date Data Source [id number] 04/08/2020 05:54:00 PM EDT [facility] TSYSORDER [id number] R [id number] [id number] [id number] 470851IVTHMBJNZ 604696KXWZXJYWT 237678KCHQQZWIH 899003NFXZGZZWM [id number] Name Value Range Interpretation Code Description Data Thi rce(s) Supporting Document(s) LIPASE 127 U/L 73-393 [facility] ID Date Data Source [id number] 04/08/2020 05:54:00 PM EDT [facility] TSYSORDER [id number] R [id number] [id number] 034132KHNVOCVUG 925329VJUQTOZPK [id number] 484014QXLUKZPVY 331725UUGPJGLRC [id number] Name Value Range Interpretation Code Description Data Thi rce(s) Supporting Document(s) GLUCOSE 98 mg/dL 74-106 [facility] BLOOD UREA NITROGEN 10 mg/dL 7-18 [facility] ital CREATININE 1.1 mg/dL 0.7-1.3 [facility] SODIUM 139 mmol/L 136-145 [facility] POTASSIUM 3.9 mmol/L 3.5-5.1 [facility] CHLORIDE 102 mmol/L 98-107 [facility] CO2 29 mmol/L 21-32 [facility] CALCIUM 9.1 mg/dL 8.5-10.1 [facility] ANION GAP 8.0 mmol/L 5-12 [facility] GLOMERULAR FILTRATION RATE 75 mL/min [facility] GFR IS CALCULATED IN mL/min/1.73m2 DENIS L FUNCTION: >90MILDLY DECREASED: 60-89MILDY TO MODERATELY DECREASED: 45-59 MODERATELY TO SEVERELY DECREASED: 30-44SEVERELY DECREASED: 15-29RENAL FAILURE: <15 AST 23 U/L 15-37 [facility] ALT 37 U/L 12-78 [facility] ALKALINE PHOSPHATASE 68 U/L 46-116 [facility] pital TOTAL BILIRUBIN 0.6 mg/dL 0.2-1.0 [facility] TOTAL PROTEIN 8.1 g/dl 6.4-8.2 [facility] ALBUMIN 4.2 gm/dL 3.4-5.0 [facility] ID Date Data Source [id number] 04/08/2020 05:44:00 PM EDT [facility] TSYS[facility] [id number] Name Value Range Interpretation Code Description Data Thi rce(s) Supporting Document(s) TSH 5.54 uIU/mL 0.36-3.74 H [facility] ID Date Data Source [id number] 04/08/2020 05:36:00 PM EDT [facility] TSYSORDER [id number] Name Value Range Interpretation Code Description Data Thi rce(s) Supporting Document(s) AMMONIA 14 umol/L 11-32 [facility] ID Date Data Source [id number] 04/08/2020 05:36:00 PM EDT [facility] l TSYSORDER [id number] Name Value Range Interpretation Code Description Data Thi rce(s) Supporting Document(s) LACTIC ACID 0.5 mmol/L 0.4-2.0 [facility] Procedure Social History Code Duration Value Status Description Data Source(s ) Smoking 08/10/2020 12:00:00 AM EST Patient has never smoked co mpleted Patient has never smoked [facility] ([facility]) Vital Signs ID Date Data Source [id number] Name Value Range Interpretation Code Description Data Source(s) Body mass index (BMI) [Ratio] 24.0 kg/m2 24.0 k g/m2 [facility], [facility]) Body height 70 [in_i] 70 [in_i] [facility] ([facility]) 5'10" Body weight 167.00 [lb_av] 167.00 [lb_av] [facility] ([facility], [facility]) Body temperature 98.9 [degF] 98.9 [degF] [facility] ([facility]) Oxygen saturation in Arterial blood by Pulse oximetry 97 % 97 % [facility] ([facility]) Respiratory rate 16 /min 16 /min [facility] ( [facility]) Heart rate 65 /min 65 /min [facility] ([facility]) Diastolic blood pressure 74 mm[Hg] 74 mm[Hg] [facility] ([facility], [facility]) Systolic blood pressure 124 mm[Hg] 124 mm[Hg] M [facility] ([facility], [facility])
--- OUTSIDE RECORDS SUMMARY | 2020-08-13 21:42 | CCD | Continuity of Care Document ---
Author Author Alfredo MCKINNEY Organization Unknown Address [facility] [place] [address] Phone [phone] Care Team Providers Care Online Content Coordinator Name Role Phone [facility] AUTM [phone] Problems Description No Information Available Social History Type Date Description Comments Sex Unknown ETOH Use Occasionally consumes alcohol Tobacco Use Start: Unknown Patient has never smoked Smoking Status Reviewed: 08/10/20 Patient has never smoked Allergies, Adverse Reactions, Alerts Active Allergies Reaction Severity Comments Date Effexor 08/10/2020 Celebrex 08/10/2020 Lunesta 08/10/2020 Diphenhydramine 08/10/2020 Medications Active Medications SIG Qnty Indications Ordering Provide r Date Lidocaine (Anorectal) 5% Cream apply to affected anal area up to 6 times daily as needed for pain 30gm K6 4.8 Vinny Doss JR., M.D. 08/10/2020 History Medications No Active Medications Unknown - 08/10/2020 Immunizations Description No Information Available Vital Signs Date Vital Result Comment 08/10/2020 10:31am BP Systolic 124 mmHg BP Diastolic 74 mmHg Heart Rate 65 /min Respiratory Rate 16 /min O2 % BldC Oximetry 97 % Body Temperature 98.9 F Weight 167.00 lb Height 70 inches 5'10" BMI (Body Mass Index) 24.0 kg/m2 Pain Level 8 Results Description No Information Available Procedures Description No Information Available Medical Devices Description No Information Available Encounters Type Date Location Provider Dx Diagnosis Office Visit 08/10/2020 8:40a Main Office Antony Bhat K6 2.89 Other specified diseases of anus and rectum K64.8 Other hemorrhoids Assessments Date Code Description Provider 08/10/2020 K62.89 Other specified diseases of anus and rectum Antony Bhat 08/10/2020 K64.8 Other hemorrhoids Antony Restrepo Plan of Treatment No Information Available Functional Status Description No Information Available Mental Status Description No Information Available Referrals Description No Information Available
--- OUTSIDE RECORDS SUMMARY | 2020-08-13 21:42 | CCD ---
Author Author [facility] Organization [facility] Address Unknown Phone Unavailable Care Team Providers Care Meat Selector Name Role Phone DanicaDoreen pradhandith Unavailable PROBLEMS Type Condition ICD9-CM Code [id number] Code Onset Dates Condition S tatus SNOMED Code Notes Problem Hypothyroidism (acquired) E03.9 Active 925880 002 Problem Mixed hyperlipidemia E78.2 Active 869012873 Problem Occipital neuralgia, unspecified laterality M54.81 Active 73262670 Problem Generalized anxiety disorder F41.1 Active 218 13865 Problem Restless leg G25.81 Active 96597774 Problem History of systemic lupus erythematosus (SLE) M32. 9 Active 060150788 ALLERGIES Allergen (clinical drug ingredient) Drug/Non Drug Allergy do cumented on EMR Reaction Allergy Type Onset Date Status celecoxib Celebrex([facility] Code:[address]-37) SOB, WEAKNESS Drug Allerg y Active Effexor JOINT ACHES, JAW TIGHTENING Drug Allergy Active aripiprazole Abilify([facility] Code:[address]-03) ZONED OUT Drug Allergy Active amphetamine aspartate / amphetamine sulf ate / dextroamphetamine saccharate / dextroamphetamine sulfate Adderall(ND Code:[address]-22) ZONED OUT D rug Allergy Active ENCOUNTERS from 1980 to 2020-08-07 Encounter Location Date Provider Diagnosis [address] [address] Jul, Irina Danica IMMUNIZATIONS No Information SOCIAL HISTORY Sex Assigned At : Social History Observation Description Sex Assigned At Unknown REASON FOR REFERRAL No Information VITAL SIGNS No information MEDICATIONS Medication SIG (Take, Route, Frequency, Duration) Notes Start Da te End Date Status Iodine - Active Seroquel 50 MG 1 tablet Orally daily at bedtime Active Probiotic - Orally Active Xanax 0.25 MG 1 tablet Orally QHS Jul, Active Vitamin C 1000 MG 1 tablet Orally Once a day Active Melatonin 1 MG 2 tablets Orally QHS for 30 day(s) Not-Taking PROCEDURES No Information RESULTS No Results REASON FOR VISIT Labs MEDICAL (GENERAL) HISTORY Type Description Date Medical History Bipolar disorder f/u with Dr. Caraballo Medical History Paranoid schizophrenia Medical History Insomnia Medical History Lupus no longer f/u with Rheumatology Medical History ocd Medical History Hypothyroidism Surgical History Appendectomy Surgical History top teeth pulled 2016 Hospitalization History Surgical needs Hospitalization History Psych, last one 5 years ago Goals Section No Information Health Concerns No Information MEDICAL EQUIPMENT No Information MENTAL STATUS No Information FUNCTIONAL STATUS No Information ASSESSMENTS No Information PLAN OF TREATMENT Next Appt Details Provider Name:Irina Mishra, 2020-07-26 7 03:40:00 PM, [address] [place] [address], [phone], Provider Name:Delma Simental, 2020-08-22 0 8:30:00 AM, [address] [place] [address], [phone], Insurance Providers Payer Name Payer Address Payer Phone Insured Name Patient Relati onship to Insured Coverage Start Date Coverage End Date [facility] - MEDICAID ANCILLARY [facility] [address] [facility] [id number] Alfredo Genao [facility] - [employer] [address] [facility] 1390 Alfredo Genao MCRA - MEDICARE [place] [address] [facility] [place] [address] Alfredo Genao
--- OUTSIDE RECORDS SUMMARY | 2020-08-13 21:42 | CCD ---
Author Author [facility] Organization [facility] Address Unknown Phone Unavailable Care Team Providers Care Territory Account Representative Name Role Phone DanicaDoreenIrina Unavailable PROBLEMS Type Condition ICD9-CM Code [id number]-FQ Code Onset Dates Condition S tatus SNOMED Code Notes Problem Hypothyroidism (acquired) E03.9 Active 034201 002 Problem Mixed hyperlipidemia E78.2 Active 018057081 Problem Occipital neuralgia, unspecified laterality M54.81 Active 12905886 Problem Generalized anxiety disorder F41.1 Active 218 12193 Problem Restless leg G25.81 Active 59608961 Problem History of systemic lupus erythematosus (SLE) M32. 9 Active 347301260 ALLERGIES Allergen (clinical drug ingredient) Drug/Non Drug Allergy do cumented on EMR Reaction Allergy Type Onset Date Status celecoxib Celebrex([facility] Code:[address]-23) SOB, WEAKNESS Drug Allerg y Active Effexor JOINT ACHES, JAW TIGHTENING Drug Allergy Active aripiprazole Abilify([facility] Code:[address]-32) ZONED OUT Drug Allergy Active amphetamine aspartate / amphetamine sulf ate / dextroamphetamine saccharate / dextroamphetamine sulfate Adderall([facility] Code:[address]-98) ZONED OUT D rug Allergy Active ENCOUNTERS from 1980 to 2020-08-04 Encounter Location Date Provider Diagnosis [address] [address] 08 Jul, 2020 Irina Danica IMMUNIZATIONS No Information SOCIAL HISTORY [...] Information RESULTS No Results REASON FOR VISIT labs MEDICAL (GENERAL) HISTORY Type Description Date Medical [...] Provider Name:Irina Mishra, 2020-07-26 7 03:40:00 PM, [address] [place] [address], [phone], Insurance Providers Payer Name Payer Address Payer Phone Insured Name Patient Relati onship to Insured Coverage Start Date Coverage End Date [facility] [employer] [employer] [address] [facility] [address] Alfredo Genao [facility] - MEDICAID ANCILLARY [facility]ILL [facility] [address] [facility] [phone] Alfredo Genao [employer] - MEDICARE [place] [address] [facility] [id number] Alfredo Genao
--- OUTSIDE RECORDS SUMMARY | 2020-08-13 21:42 | CCD | Continuity of Care Document ---
Author Author Alfredo MCKINNEY Organization Unknown Address [facility] [address] Phone [phone] Care Team Providers Care Behavioral Therapist Name Role Phone [facility] AUTM [phone] Problems Description No Information Available Social History [...]
--- OUTSIDE RECORDS SUMMARY | 2020-08-13 21:42 | CCD ---
Author Author [facility] Organization [facility] Address Unknown Phone Unavailable Care Team Providers Care Software Design Analyst Name Role Phone Irina Mishra Unavailable PROBLEMS Type Condition ICD9-CM Code [id number] Code Onset Dates Condition S tatus SNOMED Code Notes Problem Hypothyroidism (acquired) E03.9 Active 108078 002 Problem Mixed hyperlipidemia E78.2 Active 327348890 Problem Occipital neuralgia, unspecified laterality M54.81 Active 67215474 Problem Generalized anxiety disorder F41.1 Active 218 20837 Problem Restless leg G25.81 Active 72706412 Problem History of systemic lupus erythematosus (SLE) M32. 9 Active 225802396 ALLERGIES Allergen (clinical drug ingredient) Drug/Non Drug Allergy do cumented on EMR Reaction Allergy Type Onset Date Status celecoxib Celebrex([facility] Code:[address]-64) SOB, WEAKNESS Drug Allerg y Active Effexor JOINT ACHES, JAW TIGHTENING Drug Allergy Active aripiprazole Abilify([facility] Code:[address]-00) ZONED OUT Drug Allergy Active amphetamine aspartate / amphetamine sulf ate / dextroamphetamine saccharate / dextroamphetamine sulfate Adderall([facility] Code:[address]-30) ZONED OUT D rug Allergy Active ENCOUNTERS from 1980 to 2020-08-08 Encounter Location Date Provider Diagnosis [address] [address] Jul, Irina Danica Hyperglycemia R73.9 and Mixe d hyperlipidemia E78.2 IMMUNIZATIONS No Information SOCIAL HISTORY Sex Assigned [...] Information RESULTS No Results REASON FOR VISIT lab results MEDICAL (GENERAL) HISTORY Type Description Date Medical [...] No Information FUNCTIONAL STATUS No Information ASSESSMENTS Encounter Date Diagnosis Assessment Notes Treatment Notes Treatm ent Clinical Notes Jul, Hyperglycemia (ICD-10 - R73.9) Jul, Mixed hyperlipidemia (ICD-10 - E78.2) PLAN OF TREATMENT Treatment Notes Test Name Order Date HGBA1C 2020-08-08 LIPID PROFILE 2020-08-08 Next Appt Details Provider Name:Irinaangélica Mishra, 2020-07-26 7 03:40:00 PM, [address] [place] [address], [phone], Provider Name:Delma Simental, 2020-08-22 0 8:30:00 AM, [address] [place] [address], [phone], Insurance Providers Payer Name Payer Address Payer Phone Insured Name Patient Relati onship to Insured Coverage Start Date Coverage End Date [facility] [employer] DIVISION [address] [facility] 139[address] Alfredo Genao [employer] - MEDICARE [place] [address] [place] [address] [phone] Alfredo Genao [facility] - MEDICAID ANCILLARY [facility] APG BILL [facility] [address] [facility] [phone] Alfredo Genao
--- OUTSIDE RECORDS SUMMARY | 2020-08-13 22:44 | CCD ---
Author Author [facility] Organization [facility] Address Unknown Phone Unavailable Care Team Providers Care Geophysical Drafter Name Role Phone Samantha TABARES Unavailable Unavailable SYMENOW, Johanny CHRISTGRACIAER PA Unavailable Unavailable SYMENOW, G CHRISTOPHER PA [...] Unavailable Unavailable San, Reina Unavailable Unavailable San, Erina Unavailable Unavailable San, Reina Unavailable Unavailable San, [...] FAROOQ PA Unavailable Unavailable Star, A Irina ROUTE RELIEF DRIVER Unavailable Unavailable Star, A Irina ROUTE RELIEF DRIVER Unavailable Unavailable Star, A Irina ROUTE RELIEF DRIVER Unavailable Unavailable Star, A Irina ROUTE RELIEF DRIVER Unavailable Unavailable Star, A Irina ROUTE RELIEF DRIVER Unavailable Unavailable Star, A Irina ROUTE RELIEF DRIVER Unavailable Unavailable Star, A Irina ROUTE RELIEF DRIVER Unavailable Unavailable Star, A Irina ROUTE RELIEF DRIVER Unavailable Unavailable Star, A Irina ROUTE RELIEF DRIVER Unavailable Unavailable Star, A Irina ROUTE RELIEF DRIVER Unavailable Unavailable Star, A Irina ROUTE RELIEF DRIVER Unavailable Unavailable Star, A Irina ROUTE RELIEF DRIVER Unavailable Unavailable Star, A Irina ROUTE RELIEF DRIVER Unavailable Unavailable Star, A Irina ROUTE RELIEF DRIVER Unavailable Unavailable Star, A Irina ROUTE RELIEF DRIVER Unavailable Unavailable Star, A Irina ROUTE RELIEF DRIVER Unavailable Unavailable Star, A Irina ROUTE RELIEF DRIVER Unavailable Unavailable Star, A Irina ROUTE RELIEF DRIVER Unavailable Unavailable Star, A Irina ROUTE RELIEF DRIVER Unavailable Unavailable Star, A Irina ROUTE RELIEF DRIVER Unavailable Unavailable Star, A Irina ROUTE RELIEF DRIVER Unavailable Unavailable Star, A Irina ROUTE RELIEF DRIVER Unavailable Unavailable Star, A Irina ROUTE RELIEF DRIVER Unavailable Unavailable Star, A Irina ROUTE RELIEF DRIVER Unavailable Unavailable Star, A Irina ROUTE RELIEF DRIVER Unavailable Unavailable Star, A Irina ROUTE RELIEF DRIVER Unavailable Unavailable Star, A Irina ROUTE RELIEF DRIVER Unavailable Unavailable Star, A Irina ROUTE RELIEF DRIVER Unavailable Unavailable Star, A Irina ROUTE RELIEF DRIVER Unavailable Unavailable Star, A Irina ROUTE RELIEF DRIVER Unavailable Unavailable Star, A Irina ROUTE RELIEF DRIVER Unavailable Unavailable Star, A Irina ROUTE RELIEF DRIVER Unavailable Unavailable Star, A Irina ROUTE RELIEF DRIVER Unavailable Unavailable Star, A Irina ROUTE RELIEF DRIVER Unavailable Unavailable Star, A Irina ROUTE RELIEF DRIVER Unavailable Unavailable Star, A Irina ROUTE RELIEF DRIVER Unavailable Unavailable Star, A Irina ROUTE RELIEF DRIVER Unavailable Unavailable Star, A Irina ROUTE RELIEF DRIVER Unavailable Unavailable Star, A Irina ROUTE RELIEF DRIVER Unavailable Unavailable Star, A Irina ROUTE RELIEF DRIVER Unavailable Unavailable Star, A Irina ROUTE RELIEF DRIVER Unavailable Unavailable Star, A Irina ROUTE RELIEF DRIVER Unavailable Unavailable Star, A Irina ROUTE RELIEF DRIVER Unavailable Unavailable Star, A Irina ROUTE RELIEF DRIVER Unavailable Unavailable PAMELA, THAO KRUSE Unavailable Unavailable [...] SEVILLA SR, BUSTER BROWN MD Unavailable Unavailable SEVILAL SR, BUSTER BROWN MD Unavailable Unavailable SEVILLA [...] is protected by Article 27-F of the [facility] Public Health law. If you continue you may have access to information: Regarding HIV / AIDS; Provided by facilities licensed or operated by the [facility] Office of Mental Health; or Provided by the [facility] Office for People With Developmental Disabilities. If such information is present, then the following [facility] mandated warning applies: This information has been [...] law may result in a fine or skilled nursing sentence or both. A general authorization for the release of medical or other information is NOT sufficient authorization for further disc losure. Allergies and Adverse Reactions Type Description Substance Reaction Status Data Source(s ) [facility] BRANDNAME EFFEXOR E[facility] Family History Family Member Name Family Member Gender Family Member Status Date o f Status Description Data Source(s) Unknown Male Problem MEDENT ([facility]) () - at age 24 Encounters Encounter Providers Location Date Indications Data Source(s ) Outpatient Attender: FAROOQ guzman 08/10/2020 07:40:00 AM EST MEDENT ([facility]) Emergency Attender: SMITA TABARESConsultant: NITO LUEVANO 08/08/2020 06:17:00 PM EST - 08/08/2020 08:34:[address] [facility] Patient discharged. [facility]patient [facility] 08/07/2020 12:00:00 AM EST eCW1 ([facility]) Outpatient [facility] 08/01/2020 12:00:00 AM EST eCW1 ([facility]) Outpatient [facility] 08/01/2020 12:00:00 AM EST eCW1 ([facility]) Outpatient Attender: Irina DELGADOCReferrer: Irina Graves [facility] 07/30/2020 08:35:00 AM EST - 07/30/2020 08:35:00 AM [facility] Emergency Attender: HAIM BALLReferrer: Pamela Graves [facility] EMERGENCY [facility]-ER 07/15/2020 05:42:00 AM EST - 07/15/2020 06:22:00 AM [facility] Patient discharged. Emergency Attender: Inocente Queen RPA-CReferrer: Me doris Graves [facility] EMERGENCY ROOM-ER 07/05/2020 07:33:00 AM EST - 07/05/2020 12:00:00 PM [facility] Patient discharged. Emergency Attender: REKHA Sagastumeer: Irene Graves [facility] EMERGENCY ROOM-ER 04/08/2020 05:05:00 PM EDT - 04/08/2020 06:32:00 PM EDT [facility] Patient discharged. Emergency Attender: LAUREL Sagastumeer: Ely lundbergith Star [facility] EMERG[facility]Y [facility]-ER 03/26/2018 12:35:00 AM EDT - 03/26/2018 03:08:00 AM [facility] Outpatient Attender: Irina Graves FNPReferrer: Irina Graves RODRIGO 11/21/2017 06:44:00 PM EDT - 11/21/2017 06:44:00 PM [facility] Emergency Attender: REKHA Sagastumeer: Pete SE[facility]A EMERGENCY ROOM-ER 11/09/2017 10:12:00 AM EDT - 11/09/2017 11:40:00 AM [facility] Emergency Attender: PAM Cordova : KEVIN SEVILLA EMERGENCY ROOM-ER 09/23/2017 02:43:00 AM EST - 09/23/2017 09:02:00 AM [facility] Emergency Attender: LAUREL Cordova: JACQUES SEVILLA EMERGENCY ROOM-ER 02/14/2017 04:40:00 PM EDT - 02/14/2017 07:55:00 PM [facility] Outpatient Attender: Reina Oherrer: Avis KRUSE 03/31/2016 03:01:00 PM [facility] Outpatient Attender: Avis KRUSE 07/13/2013 01:17:00 PM [facility] Outpatient Attender: Avis KRUSE 11/21/2012 03:47:00 PM [facility] Outpatient Attender: KEVIN Cordova: ANETA KRUSE [facility] 05/09/2012 04:16:00 PM EDT - 05/09/2012 04:16:00 PM [facility] Medications Medication Brand Name Start Date Product Form Dose Route Admi nistrative Instructions Pharmacy Instructions Status Indications Reaction Description Data Source(s) Lidocaine 50 MG/ML Topical Cream Lidocaine (Anorectal) 08/10 12:00:00 AM EST active MEDENT ([facility], [facility]) No Active Medications 08/10/2020 12:00:00 AM EST completed MEDENT ([facility], [facility]) Insurance Providers Payer name Policy type / Coverage type Policy ID Covered green party ID Covered green party's relationship to moss Policy Moss Plan Information MEDICARE [id number] SP [id number] EMEDNY [id number] SP [id number] SELF PAY ONLY MEDICARE PART A -O/P [id number] 18 [id number] MEDICAID - O/P EMERGENCY ROOM [id number] MEDICARE PART A-O/P [id number] 18 [id number] MEDICAID [id number] S [id number] [facility] [id number] S [id number] [place] [id number] S [id number] MEDICAID [id number] S [id number] [facility] MEDICARE DIVISION [id number] S [id number] [place] [id number] S [id number] MEDICAID [id number] S [id number] [place] MED[employer] [id number] S [id number] [place] [id number] S [id number] [place] MED[employer] [id number] S [id number] MEDICAID [id number] S [id number] [place] [id number] S [id number] MEDICARE [id number] SP [id number] MEDICAID M [id number] Self [id number] MEDICARE A [id number] Self [id number] [id number] MEDICAID [id number] S [id number] MEDICARE [id number] S [id number] ANSI-Medicare Part B [id number] ANSI-Medicaid [id number] ANSI-Commercial [id number] MEDICAID [id number] S [id number] MEDICAID [id number] SP [id number] [place]ig[place] Part B [id number] Self [id number] Medicare [facility] Medicare Primary [id number] Self [id number] MEDICAID [id number] S [id number] MEDICAID M [id number] S [id number] MEDICARE C [id number] S [id number] National Government [facility] Medicare Primary [id number] Self [id number] MEDICAID [facility] [id number] MEDICARE [id number] SP [id number] [id number] SELF PAY UNAVAILABLE SP UNAVAILA BLE [id number] Problems, Conditions, and Diagnoses Code Display Name Description Problem Type Effective Dates Data Source(s) E78.2 327138525 Mixed hyperlipidemia Problem 08/04/2020 12:0 0:00 AM EST [facility]1 ([facility]) M32.9 [id number] History of systemic lupus erythematosus ( SLE) Problem 07/30/2020 12:00:00 AM EST [facility] E03.9 [id number] Hypothyroidism (acquired) Problem 07/30/2020 12:00:00 AM EST [facility] ([facility]) K5900 Constipation, unspecified Constipation, unspecified Di agnosis 08/08/2020 06:17:[address] [facility] R1084 Generalized abdominal pain Generalized abdominal pain Diagnosis 08/08/2020 06:17:[address] [facility] Z76.89 Persons encountering health services in other specified circumstances PERSONS ENCOUNTERING HEALTH SERVICES IN OTH CIRCUM Diagnosis 12/2020 08:35:00 AM [facility] Z12.11 Encounter for screening for malignant ne oplasm of colon ENCOUNTER FOR SCREENING FOR MALIGNANT NEOPLASM OF Diagnosis 07/30/2020 08:35:00 AM [facility] M32.9 Systemic lupus erythematosus, unspecifie d SYSTEMIC LUPUS ERYTHEMATOSUS, UNSPECIFIED Diagnosis 07/30/2020 08:35:00 AM EST [facility] R03.0 Elevated blood-pressure reading, without diagnosis of hypertension ELEVATED BLOOD-PRESSURE READING, W/O DIAGNOSIS OF Diagnosis 12/2020 08:35:00 AM [facility] J34.2 Deviated nasal septum DEVIATED NASAL SEPTUM Diagnosis 07/30/2020 08:35:00 AM [facility] K59.09 Other constipation OTHER CONSTIPATION Diagnosis 12/2020 08:35:00 AM [facility] R73.9 Hyperglycemia, unspecified HYPERGLYCEMIA, UNSPECIFIED Diagnosis 07/30/2020 08:35:00 AM [facility] E03.9 Hypothyroidism, unspecified HYPOTHYROIDISM, UNSPECIFIE D Diagnosis 07/30/2020 08:35:00 AM [facility] Z13.220 Encounter for screening for lipoid disor ders ENCOUNTER FOR SCREENING FOR LIPOID DISOR Diagnosis 07/30/2020 08:35:00 AM [facility] Z84.0 Family history of diseases of the skin a nd subcutaneous tissue FAMILY HISTORY OF DISEASES OF THE SKIN, Diagnosis 07/30/2020 08:35:00 AM [facility] F41.1 Generalized anxiety disorder GENERALIZED ANXIETY DISOR JOY Diagnosis 07/30/2020 08:35:00 AM [facility] Z79.899 Other residential (current) drug therapy 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) 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 THERAPY Diagnosis 07/15/2020 05:42:00 AM [facility] K59.00 Constipation, unspecified CONSTIPATION, UNSPECIFIED Di agnosis 07/15/2020 05:42:00 AM [facility] R10.84 Generalized abdominal pain GENERALIZED ABDOMINAL PAIN Diagnosis 07/15/2020 05:42:00 AM [facility] R10.30 Lower abdominal pain, unspecified LOWER ABDOMINA L PAIN, UNSPECIFIED Diagnosis 07/05/2020 07:33:00 AM [facility] R44.3 Hallucinations, unspecified HALLUCINATIONS, UNSPECIFIE D Diagnosis 04/08/2020 05:05:00 PM [facility] R07.89 Other chest pain OTHER CHEST PAIN Diagnosis 04/08/2020 05 :05:00 PM [facility] Results ID Date Data Source [id number] 08/11/2020 09:34:00 AM [facility] [address] [place] [address] PHONE: [phone] FAX: [phone] Name .................. : RAI Garcia Acct Number.................. : [id number] ROOM. ................. : TR-06 MR Number ................... : [id number] Stay type ............. : E/R Discharge Date......... ... : 08/08/20 Admit Date .... ..... : 08/08/20 Admit Phys .................... : ERNESTINAAL Date of ....... : 1980 Family Phys ................... : [employer] Phone .................. : [phone] Age ................................ : 40 Film# .................. .:[id number] Sex ................................. : M Unsigned transcriptions are preliminary reports and do not represent a medical or legal document CT ABD & PELVIS W/ IV ONLY [id number] COMPLETE:08/08/20 19:17 [facility] 2321 Reason(s): Abdominal Pain CT OF THE [...] of administration: Intravenous Page 1 of 2 [facility] [address] [place] [address] [place] [address] PHONE: [phone] FAX: [phone] Name .................. : RAI Garcia Acct Number.................. : [id number] ROOM. ................. : TR-06 Number ................... : [id number] Stay type ............. : E/R Discharge Date......... ... : 08/08/20 Admit Date ......... : 08/08/20 Admit Phys .................... : RAYSHAWN Date of ....... : 1980 Family Phys ................... : ROEL KRUSE Phone .................. : [phone] Age ................................ : 40 Film# .................. .:[id number] Sex ................................. : M Unsigned transcriptions are preliminary reports and do not represent a medical or legal document CT ABD & PELVIS W/ IV ONLY [id number] COMPLETE:08/08/20 19:17 [facility] 2321 Reason(s): Abdominal Pain Electronically Reviewed and Signed By Sorin Piña M.D. , 08/11/20 09:34, [place] Transcribe Initials: DZ , Transcribe Date: 08/08/20 23:19, Dictation Date: Copy for: YUE LAZAR via fax Copy for: EMERGENCY DEPT via modem Copy for: 710 MED REC DISCHARGED Page 2 of 2 Name Value Range Interpretation Code Description Data Thi rce(s) Supporting Document(s) ID Date Data Source [id number] 08/08/2020 06:17:00 PM EST [facility] 1 OrderSheet [facility] Emergency Department [address] [place] [address] Phone #: ext- [phone] 08/08/2020 17:55 Patient: KEYLA ATWOOD Sex: M : 1980 Age: 40yWEIGHT:76.2 kg (S) HEIGHT:70 inches (S) BMI:24.1ALLERGIES: Abilify, Benadryl worsen every thinng, Effexor, LunestaCHIEF COMPLAINT: abdominal painDIAGNOSIS: Constipation, Abdominal painLAB ORDERSOrder Description Priority Entered Acknowledged InitialedCBC w Diff STAT 18:31 08/08/2020 18:33 Pedro Islas RN PA;CMP STAT 18:31 08/08/2020 18:33 Pedro Islas RN PA;Lipase STAT 18:31 08/08/2020 18:33 Pedro Islas RN PA;Urinalysis (Clean STAT 18:08/08/2020 Cancelled: Unable to Collect 20:34Catch) Lizabeth Church R.N.;Lactic Acid STAT 18:31 08/08/2020 18:33 Pedro Islas RN PA;DIAGNOSTIC STUDY ORDERSOrder Description Priority Entered Acknowledged InitialedCT Abd PEL W/ IV STAT 18:31 08/08/2020 18:33 TerryContrast Only Alberto Islas RN(Oxygen?(No)) PA;(IV?(Yes)) Reason for Study: Abdominal PainMEDICATION/IV/DRIP/FLUID ORDERSOrder Description Priority Entered Acknowledged InitialedNS IV 1000 mL 18:31 08/08/2020 18:54 TerryBolus: : Bolus 1000 Alberto Islas RNmL (X1) PA;Toradol IVP 30 mg 18:31 08/08/2020 18:55 Pedro Islas RN 2 OrderSheet [facility] Emergency Department [address] [place] [address] Phone #: ext- [phone] 08/08/2020 17:55 Patient: KEYLA ATWOOD Sex: M : 1980 Age: 40y PA;Reglan 10 mg IVP 18:31 08/08/2020 18:56 TerryX1 dose: 10 mg Alberto Islas RN(NOW x1) PA;hydrOXYzine PO 25 19:17 08/08/2020 19:23 Lisaymg Alberto Islas RN PA; Reason for ordering [...] rce(s) Supporting Document(s) ID Date Data Source [id number] 08/08/2020 06:17:[address] [facility] 1 Medication Reconciliation Report [facility] Emergency Department [address] [place] [address] Phone #: ext- [phone] 08/08/2020 17:55 Patient: KEYLA ATWOOD Sex: M : 1980 Age: 40yWeight: 76.2 kgHeight/Length: 70 in.BMI: 24.1ALLERGIES: Abilify, Benadryl worsen pati thinmaggi, Effexor, LunestSalinas patient's Home Medications are listed below:CONTINUE TAKING THE FOLLOWING MEDICATIONS: SEROquel Oral Xanax OralThe source(s) of the original Home Medication information:patientThe following Medications were given to the patient in the Emergency Department:NS [IV] IV Fluids bolus 1000 mL over 1 hour(s), administered: 18:49 08/08/2020Toradol [IVP] IVP 30 mg, administered: 18:50 0 08/08/2020eglan [IVP] IVP 10 mg, administered: 18:51 08/08/2020Hydroxyzine [PO] PO 25 mg, administered: 19:23 08/08/2020epcid [PO] PO 20 mg, administered: 19:08/08/2020olu-Medrol [IVP] IVP 125 mg, administered: 19:28 08/08/2020The following Medications were prescribed to the patient:None. Name Value Range Interpretation Code Description Data Thi rce(s) Supporting Document(s) ID Date Data Source [id number] 08/08/2020 06:17:00 PM EST [facility] 1 Medication Administration Record [facility] Emergency Department [address] [place] [address] Phone #: ext- [phone] 08/08/2020 17:55 Patient: KEYLA ATWOOD Sex: M : 1980 Age: 40yWeight: 76.2 kgHeight/Length: 70 inBMI: 24.1ALLERGIES: Lunesta, Abilify, Effexor, Benadryl worsen every thinng Date/Time Medication Administered Medication OrderedStart NS [IV] NS IV 1000 mL Bolus: : Bolus 369193:[id number] 08/08/2020 Dose: IV Fluids mL (X1)Pedro Islas RN Bolus: 1000 mL over 1 hour(s)---- Dispensed: 1000 mL bagStop Site: #1 right AC20:05 08/08/2020Carla Newton, R.NFouziaGiven TORADOL [IVP] (KETOROLAC Toradol IVP 30 mg18:50 08/08/2020 TROMETHAMINE)Pedro Islas RN Dose: 30 mg IVP Site: #1 right ACGiven REGLAN [IVP] (METOCLOPRAMIDE Reglan 10 mg IVP X1 dose: 10 mg18:51 08/08/2020 HCL) (NOW x1)Pedro Islas RN Dose: 10 mg IVP Site: #1 right ACGiven HYDROXYZINE [PO] hydrOXYzine PO 25 mg19:23 08/08/2020 Dose: 25 mg Tablets Salazar Islas RNGiven PEPCID [PO] (FAMOTIDINE) Pepcid PO 20 mg (NOW x1)19:23 08/08/2020 Dose: 20 mg Tablets Salazar Islas RNGiven SOLU-MEDROL [IVP] SOLU-Medrol 125 mg IV X1 Dose:19:28 08/08/2020 (METHYLPREDNISOLONE SODIUM 125 mg (X1)Pedro Islas RN SUCC) Dose: 125 mg IVP Site: #1 right AC Name Value Range Interpretation Code Description Data Thi rce(s) Supporting Document(s) ID Date Data Source [id number] 08/08/2020 06:17:00 PM EST [facility] 1 General Instructions [facility] Emergency Department [address] [place] [address] Phone #: ext- [phone] 08/08/2020 17:55 Patient: [...] do seem to make 2 General Instructions [facility] Emergency Department [address] [place] [address] Phone #: ext- [phone] 08/08/2020 17:55 Patient: [...] Swelling of the abdomen 3 General Instructions [facility] Emergency Department [address] [place] [address] Phone #: ext- [phone] 08/08/2020 17:55 Patient: KEYLA ATWOOD Sex: M : 1980 Age: 40y Fever of 100.4F (38C) or higher, or as directed by your healthcare provider Blood in vomit or bowel movements (dark red or black color) Jaundice (yellow color of eyes and skin) New onset of weakness, dizziness or fainting New onset of chest, arm, back, neck or jaw pain [id number] [employer]. [address] [place] [address]. All rights reserved. This information is not [...] pain around the anus 4 General Instructions [facility] Emergency Department [address] [place] [address] Phone #: ext- [phone] 08/08/2020 17:55 Patient: [...] problem in the future. 5 General Instructions [facility] Emergency Department [address] [place] [address] Phone #: ext- [phone] 08/08/2020 17:55 Patient: [...] have more tests or see a specialist.Call [phone] if any of these occur: Trouble breathing Stiff, rigid abdomen that is severely painful to touch 6 General Instructions [facility] Emergency Department [address] [place] [address] Phone #: ext- [phone] 08/08/2020 17:55 Patient: KEYLA ATWOOD Sex: M [...] Black, tarry stool Involuntary weight loss Weakness [phone] [employer]. [address] [place] [address], [place] [address]. All rights reserved. This information is not intended as asubstitute for professional medical care. Always follow your healthcare professional's instructions. You have been given the following additional information: Unknown Causes of Abdominal Pain (Male) Constipation (Adult)(Electronically signed by URIAH Lucio 08/08/2020 21:34) Name Value Range Interpretation Code Description Data Thi rce(s) Supporting Document(s) ID Date Data Source [id number] 08/08/2020 06:17:00 PM EST [facility] 1 Clinical Report - Nurses [facility] Emergency Department [address] [place] [address] Phone #: ext- [phone] 08/08/2020 17:55 Patient: KEYLA ATWOOD Sex: M : 1980 Age: 40yTRIAGEArrived by private vehicle. Historian: patient. Accompanied by spouse (in car).Triage time: 18:00 08/08/2020. Acuity: LEVEL 3.Chief Complaint: ABDOMINAL PAIN.Alert. No acute distress.Onset. (has increased since April). ( Pt states he has had bowel issues since he was a young kid. Hehas been seen several times in [facility] for this same issue with no results. Pt feels like he needs todefecate all the time with no results. He has c/o cramping and constant irritation with his bowel. Pt isscheduled for a colonoscopy on the .). 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 --18:07 08/08/20 Lizabeth Mazariegos R.N.18:11 08/08/20. BP: [...] Mazariegos R.N.History 2 Clinical Report - Nurses [facility] Emergency Department [address] [place] [address] Phone #: ext- [phone] 08/08/2020 17:55 Patient: KEYLA ATWOOD Sex: M : 1980 Age: 40y PAST [...] on patient. --18:07 08/08/20 Lizabeth Mazariegos R.N.PHYSICAL UEULQDYRWS24:16 08/08/20. Ambulatory to room.GENERAL / NEURO / [...] --18:54 08/08/20 3 Clinical Report - Nurses [facility] Emergency Department [address] [place] [address] Phone #: ext- [phone] 08/08/2020 17:55 Patient: [...] to CT by wheelchair with mask and marine services technician. (1854). --18:57 08/08/20 HAN Klein19:12 08/08/20. BP: 137/104. MAP: 115. HR: 91. RR: 24. O2 saturation: 100% on room air. --19: Pedro KARTHIK Islascarlos returned from CT by wheelchair with mask and marine services technician. (1909). Patient not waiting forresults. ( 1909 engineering technologist called for nurse stating after IV dye [...] RN 4 Clini samantha Report - Nurses [facility] Emergency Department [address] [place] [address] Phone #: ext- [phone] 08/08/2020 17:55 Patient: KEYLA ATWOOD Sex: M : 1980 Age: 40y ( 1928 pt stating feeling better episode passing). --19:29 08/08/20 Pedro Islas RN 19:41 08/08/20. BP: 127/77. MAP: 93. HR: 46. RR: 16. O2 saturation: 99%. --19:41 08/08/20 [employer] 19:57 08/08/20. BP: 133/82. MAP: 99. HR: 44. RR: 16. O2 saturation: 99%. --19:57 08/08/20 [employer] 20:05 08/08/2020 IV Fluids NS via [...] F. Pain level now: 10/01. --20:24 08/08/20 [employer] late entry - 20:34 08/08/20. Departure time: late entry - 20:34 08/08/2020. Condition at departure: improved. No learning barriers present. Discharge instructions provided and reviewed with the patient. Reviewed referral to a primary care physician for followup. Patient verbalized understanding. Written instructions provided in Mauritanian. The patient was discharged by the physician technician assistant. He was discharged home and accompanied by family. He left ambulatory and via private vehicle. Family member driving. --20:36 08/08/20 Lizabeth Mazariegos R.N.Locked/Released at 08/08/2020 20:37 by Lizabeth Mazariegos R.N. Name Value Range Interpretation Code Description Data Thi rce(s) Supporting Document(s) ID Date Data Source [id number] 08/08/2020 06:17:00 PM EST [facility] 1 Clinical Report - Physicians/Mid Levels [facility] Emergency Department [address] [place] [address] Phone #: ext- [phone] 08/08/2020 17:55 Patient: KEYLA ATWOOD Sex: M : 1980 Age: 40y Time Seen: 18:25 08/08/2020. Arrived- By private vehicle. Historian- patient.HISTORY OF PRESENT ILLNESS Chief Complaint: ABDOMINAL PAIN. This started since Apr; Pt states he has had bowel issues since he was a young kid. He has been seen several times in [facility] for this same issue with no results. [...] use. 2 Clinical Report - Physicians/Mid Levels [facility] Emergency Department [address] [place] [address] Phone #: ext- [phone] 08/08/2020 17:55 Patient: [...] INDICATED 3 Clinical Report - Physicians/Mid Levels [facility] Emergency Department [address] [place] [address] Phone #: ext- [phone] 08/08/2020 17:55 Patient: [...] mL/min Normal Lipase: (DEMETRIUS: 08/08/2020 18:43) ( [facility] 08/08/2020 19:18) Final results Test Result Flag Units (Reference) LIPASE 35 U/L (13 - 60) Lactic Acid: (DEMETRIUS: 08/08/2020 18:43) ( [facility] 08/08/2020 19:07) Final results Test Result Flag Units (Reference) LACTIC ACID 1.1 MMOL/L (0.2 - 2.2) CT Abd PEL W/ IV Contrast Only: (DEMETRIUS: 08/08/2020 18:31) ( [facility] 08/08/2020 19:17) In Progress CT ABD Reason(s): Abdominal Pain TRANSPORTATION: IV? IV?(Yes) O2? Oxygen?(No) Ro.PROGRESS AND PROCEDURESCourse of Care: 20:18 Aug 08 2020. Evaluation after observation. (Discussed Ct results, labs, fairamount of stool throughout but none in rectum. Pt has C-scope scheduled for the and instructed to 4 Clinical Report - Physicians/Mid Levels [facility] Emergency Department [address] [place] [address] Phone #: ext- [phone] 08/08/2020 17:55 Patient: KEYLA ATWOOD Sex: M [...] 08/08/2020 21:34) 5Clinical Report - Physicians/Mid Levels [facility] Emergency Department [address] [place] [address] Phone #: ext- [phone] 08/08/2020 17:55--------- Patient: KEYLA ATWOOD Sex: M : 1980 Age: 40y Name Value Range Interpretation Code Description Data Thi rce(s) Supporting Document(s) ID Date Data Source [id number] 08/08/2020 07:19:00 PM EST [facility] Name Value Range Interpretation Code Description Data Thi rce(s) Supporting Document(s) COMPREHENSIVE METABOLIC PANEL [facility] COMPREHENSIVE METABOLIC PANEL Sodium [Moles/volume] in Serum or Plasma 137 mEq/L 134 - 153 [facility] Potassium [Moles/volume] in Serum or Plasma 4.0 mEq/L 3.6 - 5.0 [facility] Chloride [Moles/volume] in Serum or Plasma 102 mEq/L 98 - 107 [facility] Carbon dioxide, total [Moles/volume] in Serum or Plasma 26 MEQ/L 22 - 30 [facility] Glucose [Mass/volume] in Serum or Plasma 102 MG/DL 70 - 99 H [facility] BUN 16 MG/DL 7 - 21 [facility] Creatinine [Mass/volume] in Serum or Plasma 1.0 MG/DL 0.7 - 1.5 [facility] BUN/CREAT 16 8 - 27 [facility] Protein [Mass/volume] in Serum or Plasma 7.3 G/DL 6.3 - 8.2 [facility] Albumin [Mass/volume] in Serum or Plasma 4.7 G/DL 3.9 - 5.0 [facility] Globulin [Mass/volume] in Serum by calculation 2.6 GM/DL 2.4 - 3.2 [facility] A/G RATIO 1.8 0.8 - 2.0 [facility] Calcium [Mass/volume] in Serum or Plasma 9.2 MG/DL 8.4 - 10.2 [facility] Bilirubin.total [Mass/volume] in Serum or Plasma <0.7 MG/DL 0.2 - 1.3 [facility] Alkaline phosphatase [Enzymatic activity/volume] in Serum or Plasma 62 U/L 38 - 126 [facility] Aspartate aminotransferase [Enzymatic activity/volume] in Serum or Plasma 17 U/L 5 - 40 [facility] Alanine aminotransferase [Enzymatic activity/volume] in Seru m or Plasma 12 U/L 7 - 56 [facility] Anion gap 3 in Serum or Plasma 9.0 mmol/L 8.0 - 16.0 [facility] AGE 40 yrs [facility] Hospit al NON-AA GFR >60 mL/min [facility] Hosp ital AFR AMER GFR >60 mL/min [facility] Ho spital Male GFR In terprentation [...] >32 mL/min Normal ID Date Data Source [id number] 08/08/2020 07:18:[address] [facility] Name Value Range Interpretation Code Description Data Thi rce(s) Supporting Document(s) Lipase [Enzymatic activity/volume] in Serum or Plasma 35 U/L 13 - 60 [facility] ID Date Data Source [id number] 08/08/2020 07:07:[address] [facility] Name Value Range Interpretation Code Description Data Thi rce(s) Supporting Document(s) Lactate [Moles/volume] in Serum or Plasma 1.1 MMOL/L 0.2 - 2.2 [facility] ID Date Data Source [id number] 08/08/2020 06:51:00 PM [facility] Value Range Interpretation Code Description Data Thi rce(s) Supporting Document(s) CBC W/AUTOMATED DIFF [facility] COMPLETE BLOOD COUNT Leukocytes [#/volume] in Blood by Automated count 4.9 10^3/uL 4.2 - 1 1.0 [facility] Erythrocytes [#/volume] in Blood by Automated count 4.55 10^6/uL 4. 50 - 6.30 [facility] Hemoglobin [Mass/volume] in Blood 14.2 g/dL 14.0 - 16.0 [facility] Hematocrit [Volume Fraction] of Blood by Automated count 41.7 % 4 1.0 - 51.0 [facility] Erythrocyte mean corpuscular volume [Entitic volume] by Auto mated count 91.6 fL 80.0 - 94.0 [facility] Erythrocyte mean corpuscular hemoglobin [Entitic mass] by Automated count 31.2 pg 27.0 - 34.0 [facility] Erythrocyte mean corpuscular hemoglobin concentration [Mass/volume] by Automated count 34.1 g/dL 31.0 - 36.0 [facility] Erythrocyte distribution width [Ratio] by Automated count 12.3 % 11.5 - 14.8 [facility] Platelets [#/volume] in Blood by Automated count 232 10^3/uL 150 - 45 0 [facility] Platelet mean volume [Entitic volume] in Blood by Automated count 10.6 fL 7.4 - 10.4 H [facility] Neutrophils/100 leukocytes in Blood by Automated count 48.5 % 37. 0 - 80.0 [facility] Lymphocytes/100 leukocytes in Blood by Manual count 36.2 % 25.0 - 40.0 [facility] Monocytes/100 leukocytes in Blood by Automated count 10.4 % 3.0 - 8.0 H [facility] Eosinophils/100 leukocytes in Blood by Automated count 4.1 % 0.0 - 7.0 [facility] Basophils/100 leukocytes in Blood by Automated count 0.6 % 0.0 - 2.0 [facility] %IG 0.2 % 0.0 - 0.0 [facility] 0.0 % 0.0 - 0.0 [facility] al Neutrophils [#/volume] in Blood by Automated count 2.37 10^3/uL 2.00 - 6.90 [facility] Lymphocytes [#/volume] in Blood by Automated count 1.77 10^3/uL 0.60 - 3.40 [facility] Monocytes [#/volume] in Blood by Automated count 0.51 10^3/uL 0.00 - 0.90 [facility] Eosinophils [#/volume] in Blood by Automated count 0.20 10^3/uL 0.00 - 0.70 [facility] Basophils [#/volume] in Blood by Automated count 0.03 10^3/uL 0.00 - 0.20 [facility] #IG 0.01 10^3/uL 0.00 - 0.10 [facility] #NRBC 0.00 10^3/uL 0.00 - 0.00 [facility] MANUAL DIFF NOT INDICATED [facility] RBC MORPH NOT INDICATED [facility] ID Date Data Source [id number] 08/01/2020 11:37:00 AM EST [facility] Name Value Range Interpretation Code Description Data Thi rce(s) Supporting Document(s) HGBA1C 5.2 % 3.8-5.6 [facility] Diabetic > or = to 6.5%Prediabetes 5.7-6 .4%Normal <5.7 ESTIMATED AVERAGE GLUCOSE 102.5 mg/dL [facility] ID Date Data Source [id number] 07/31/2020 12:09:00 PM EST [facility] Name Value Range Interpretation Code Description Data Thi rce(s) Supporting Document(s) MICHELLE DIRECT Negative Negative [facility] Performed at: RN - [facility] [place] [id number] Director: Nette Iqbal MD, Phone: [phone] ID Date Data Source [id number] 07/31/2020 12:05:00 PM EST [facility] Name Value Range Interpretation Code Description Data Thi rce(s) Supporting Document(s) MICHELLE Direct Negative Negative [facility] ID Date Data Source [id number] 07/30/2020 11:30:00 AM EST [facility] Name Value Range Interpretation Code Description Data Thi rce(s) Supporting Document(s) C REACTIVE PROTEIN 0.5 mg/L 0.0-3.0 [facility] jovon ID Date Data Source [id number] 07/30/2020 11:30:00 AM EST [facility] Name Value Range Interpretation Code Description Data Thi rce(s) Supporting Document(s) CHOLESTEROL 187 mg/dL 0-200 [facility] TRIGLYCERIDES 1072 mg/dL 0-150 *H [facility] CALCULATED LDL MAY NOT BE VALID WHEN TRI GLYCERIDE IS GREATERTHAN 400 MG/dL. HDL CHOLESTEROL 24 mg/dL 40-60 [facility] CHOL/HDL RATIO 7.8 0.0-5.0 H [facility] ID Date Data Source [id number] 07/30/2020 11:30:00 AM [facility] Name Value Range Interpretation Code Description Data Thi rce(s) Supporting Document(s) GLUCOSE 113 mg/dL 74-106 H [facility] BLOOD UREA NITROGEN 12 mg/dL 7-18 [facility] ital CREATININE 1.01 mg/dL 0.7-1.3 [facility] SODIUM 140 mmol/L 136-145 [facility] mmol/L POTASSIUM 4.6 mmol/L 3.5-5.1 [facility] CHLORIDE 103 mmol/L 98-107 [facility] CO2 28 mmol/L 21-32 [facility] CALCIUM 9.5 mg/dL 8.5-10.1 [facility] ANION GAP 9.0 mmol/L 5-12 [facility] GLOMERULAR FILTRATION RATE 82 mL/min [facility] GFR IS CALCULATED IN mL/min/1.73m2 DENIS L FUNCTION: >90MILDLY DECREASED: 60-89MILDY TO MODERATELY DECREASED: 45-59 MODERATELY TO SEVERELY DECREASED: 30-44SEVERELY DECREASED: 15-29RENAL FAILURE: <15 AST 23 U/L 15-37 [facility] ALT 20 U/L 12-78 [facility] ALKALINE PHOSPHATASE 76 U/L 46-116 [facility] pital TOTAL BILIRUBIN 0.2 mg/dL 0.2-1.0 [facility] TOTAL PROTEIN 7.7 g/dl 6.4-8.2 [facility] ALBUMIN 4.4 gm/dL 3.4-5.0 [facility] ID Date Data Source [id number] 07/30/2020 10:51:00 AM [facility] Name Value Range Interpretation Code Description Data Thi rce(s) Supporting Document(s) ERYTHROCYTE SEDIMENTATION RATE 2 mm/hr 0-15 [facility] ID Date Data Source [id number] 07/30/2020 09:51:00 AM [facility] Name Value Range Interpretation Code Description Data Thi rce(s) Supporting Document(s) WHITE BLOOD COUNT 6.3 K/mm3 4.0-10.0 [facility] al RED BLOOD COUNT 4.71 M/mm3 4.50-6.00 [facility] HEMOGLOBIN 15.2 gm/dL 14.0-18.0 [facility] HEMATOCRIT 43.0 % 42.0-54.0 [facility] MEAN CELL VOLUME 91.3 fl 80-96 [facility] MEAN CORPUSCULAR HEMOGLOBIN 32.3 pg 27.0-31.0 H [facility] MEAN CORPUSCULAR HGB CONC 35.3 g/dl 32.0-36.0 [facility] RED CELL DISTRIBUTION WIDTH 12.4 % 10.0-14.5 [facility] PLATELET COUNT 247 K/mm3 172-450 [facility] MEAN PLATELET VOLUME 10.4 fl 9.0-13.0 [facility] pital GRAN % 43.6 % 50-80.0 L [facility] IG% 0.0 % 0.0-0.2 [facility] LYMPH % 42.9 % 25.0-50.0 [facility] MONO % 10.2 % 2.0-10.0 H [facility] EOS % 3.0 % 0-5.0 [facility] BASO % 0.3 % 0.0-2.0 [facility] GRAN # 2.7 K/mm3 2.0-8.00 [facility] IG# 0.0 K/mm3 0.0-0.2 [facility] LYMPH # 2.7 K/mm3 1.0-5.0 [facility] MONO # 0.6 K/mm3 0.10-1.20 [facility] EOS # 0.2 K/mm3 0.0-0.5 [facility] BASO # 0.0 K/mm3 0.0-0.2 [facility] ID Date Data Source [id number] 07/30/2020 10:27:00 AM EST [facility] Name Value Range Interpretation Code Description Data Thi rce(s) Supporting Document(s) FREE T4 0.9 ng/dL 0.76-1.46 [facility] ID Date Data Source [id number] 07/30/2020 10:27:00 AM EST [facility] Name Value Range Interpretation Code Description Data Thi rce(s) Supporting Document(s) TSH 6.422 uIU/mL 0.36-3.74 H [facility] ID Date Data Source [id number] 07/15/2020 06:30:00 AM EST [facility] Patient: KEYLA ATWOOD Observation Re port - Physicians/Mid Levels Hospital, [facility].VisitID: [id number] [place] [address] [phone], MRegistration Date/Time: 07/15/2020 05:21 Weight:75.7 kg (S). [...] Name Value Range Interpretation Code Description Data [facility](s) Supporting Document(s) ID Date Data Source [id number] 07/15/2020 06:22:00 AM EST [facility] DATE OF EXAMINATION: 07/15/2020 5:44 EST [...] Name Value Range Interpretation Code Description Data [facility](s) Supporting Document(s) ID Date Data Source [id number] 07/15/2020 05:47:00 AM EST [facility] TSYSORDER [id number] Name Value Range Interpretation Code Description Data Thi rce(s) Supporting Document(s) URINE RBC 0-2 /hpf 0-3 [facility] URINE WBC 0-2 /hpf 0-5 [facility] URINE BACTERIA 1+ NONE SEEN [facility] URINE MUCUS 1+ NEGATIVE [facility] URINE AMORPHOUS SEDIMENT 4+ [facility] ID Date Data Source [id number] 07/15/2020 05:40:00 AM [facility] ital TSYSORDER [id number] Name Value Range Interpretation Code Description Data Thi rce(s) Supporting Document(s) URINE COLOR. YELLOW [facility] URINE APPEARANCE CLOUDY [facility] l URINE GLUCOSE (UA) NEGATIVE mg/dL NEGATIVE [facility] URINE BILIRUBIN NEGATIVE NEGATIVE [facility] URINE KETONE NEGATIVE mg/dL NEGATIVE [facility] SPECIFIC GRAVITY,URINE 1.020 1.001-1.035 [facility] URINE BLOOD NEGATIVE NEGATIVE [facility] PH,URINE 8.5 5.0-9.0 [facility] URINE PROTEIN 1+(30) mg/dL NEGATIVE H [facility] l URINE UROBILINOGEN NORMAL(0.2-1) mg/dL 0-1 R [facility] URINE NITRATE NEGATIVE NEGATIVE [facility] URINE LEUKOCYTE ESTERASE NEGATIVE NEGATIVE [facility] ID Date Data Source [id number] 07/05/2020 01:24:00 PM [facility] Patient: KEYLA ATWOOD Re port - Physicians/Mid Levels [facility], [facility].VisitID: [id number] [place] [address] [phone], MRegistration Date/Time: 07/05/2020 07:13 Weight:70.7 kg (S). Height/Length:70 inches (S). BMI:22.4 FAMILY HISTORYNo significant family medical history. (Electronically signed by Inocente Queen PA 07/05/2020 13:21) Name Value Range Interpretation Code Description Data Thi rce(s) Supporting Document(s) ID Date Data Source [id number] 07/05/2020 10:44:00 AM EST [facility] [...] Name Value Range Interpretation Code Description Data [facility](s) Supporting Document(s) ID Date Data Source [id number] 07/05/2020 08:48:00 AM [facility] TSYSORDER [id number] Name Value Range Interpretation Code Description Data [facility] Supporting Document(s) GLUCOSE 85 mg/dL 74-106 [facility] BLOOD UREA NITROGEN 20 mg/dL 7-18 H [facility] ital CREATININE 1.1 mg/dL 0.7-1.3 [facility] SODIUM 138 mmol/L 136-145 [facility] POTASSIUM 4.2 mmol/L 3.5-5.1 [facility] CHLORIDE 101 mmol/L 98-107 [facility] CO2 29 mmol/L 21-32 [facility] CALCIUM 9.3 mg/dL 8.5-10.1 [facility] ANION GAP 8.0 mmol/L 5-12 [facility] GLOMERULAR FILTRATION RATE 75 mL/min [facility] GFR IS CALCULATED IN mL/min/1.73m2 DENIS L FUNCTION: >90MILDLY DECREASED: 60-89MILDY TO MODERATELY DECREASED: 45-59 MODERATELY TO SEVERELY DECREASED: 30-44SEVERELY DECREASED: 15-29RENAL FAILURE: <15 AST 14 U/L 15-37 L [facility] ALT 25 U/L 12-78 [facility] ALKALINE PHOSPHATASE 69 U/L 46-116 [facility] pital TOTAL BILIRUBIN 0.3 mg/dL 0.2-1.0 [facility] TOTAL PROTEIN 8.1 g/dl 6.4-8.2 [facility] ALBUMIN 4.4 gm/dL 3.4-5.0 [facility] ID Date Data Source [id number] 07/05/2020 08:29:00 AM [facility] ital TSYSORDER [id number] Name Value Range Interpretation Code Description Data Thi rce(s) Supporting Document(s) URINE COLOR. YELLOW [facility] URINE APPEARANCE CLEAR [facility] l URINE GLUCOSE (UA) NEGATIVE mg/dL NEGATIVE [facility] URINE BILIRUBIN NEGATIVE NEGATIVE [facility] URINE KETONE NEGATIVE mg/dL NEGATIVE [facility] SPECIFIC GRAVITY,URINE 1.025 1.001-1.035 [facility] URINE BLOOD NEGATIVE NEGATIVE [facility] PH,URINE 7.0 5.0-9.0 [facility] URINE PROTEIN NEGATIVE mg/dL NEGATIVE [facility] UR[facility] UROBILINOGEN NORMAL(0.2-1) mg/dL 0-1 [facility] URINE NITRATE NEGATIVE NEGATIVE [facility] URINE LEUKOCYTE ESTERASE NEGATIVE NEGATIVE [facility] ID Date Data Source [id number] 07/05/2020 08:27:00 AM [facility] l TSYSORDER [id number] Name Value Range Interpretation Code Description Data Thi rce(s) Supporting Document(s) WHITE BLOOD COUNT 6.5 K/mm3 4.0-10.0 [facility] al RED BLOOD COUNT 4.80 M/mm3 4.50-6.00 [facility] HEMOGLOBIN 14.8 gm/dL 14.0-18.0 [facility] HEMATOCRIT 43.9 % 42.0-54.0 [facility] MEAN CELL VOLUME 91.5 fl 80-96 [facility] MEAN CORPUSCULAR HEMOGLOBIN 30.8 pg 27.0-31.0 [facility] MEAN CORPUSCULAR HGB CONC 33.7 g/dl 32.0-36.0 [facility] RED CELL DISTRIBUTION WIDTH 12.4 % 10.0-14.5 [facility] PLATELET COUNT 244 K/mm3 172-450 [facility] MEAN PLATELET VOLUME 11.0 fl 9.0-13.0 [facility] pital GRAN % 40.1 % 50-80.0 [facility] IG% 0.0 % 0.0-0.2 [facility] LYMPH % 46.6 % 25.0-50.0 [facility] MONO % 11.1 % 2.0-10.0 H [facility] EOS % 1.9 % 0-5.0 [facility] BASO % 0.3 % 0.0-2.0 [facility] GRAN # 2.6 K/mm3 2.0-8.00 [facility] IG# 0.0 K/mm3 0.0-0.2 [facility] LYMPH # 3.0 K/mm3 1.0-5.0 [facility] MONO # 0.7 K/mm3 0.10-1.20 [facility] EOS # 0.1 K/mm3 0.0-0.5 [facility] BASO # 0.0 K/mm3 0.0-0.2 [facility] ID Date Data Source [id number] 07/02/2020 12:00:00 AM EST [facility] Name Value Range Interpretation Code Description Data Thi rce(s) Supporting Document(s) 2019-nCoV [facility] by [facility] and reported by [facility]. ID Date Data Source [id number] 04/08/2020 06:38:00 PM EDT [facility] Patient: KEYLA ATWOOD Observation Re port - Physicians/Mid Levels [facility].VisitID: [id number] [place] [address] [phone], MRegistration Date/Time: 04/08/2020 16:26 Weight:75.7 kg (S). [...] medical history. (Electronically signed by Rekha Wiggins, P.AFouzia 04/08/2020 18:35) Name Value Range Interpretation Code Description Data [facility]s) Supporting Document(s) ID Date Data Source [id number] 04/08/2020 05:33:00 PM EDT [facility] PROCEDURE: CHEST 1 VIEW DATE AND TIME: 16:57 EDT HISTORY: Chest pain COMPARISON: Chest x-ray 11/09/2017 TECHNIQUE: Portable AP chest x-ray. Findings: Lungs are clear. Cardiomediastinal contours are normal. Visualizedosseous structures are intact. IMPRESSION: No acute disease. Electronically signed in [id number] by: Eric Miranda 04/08/2020 17:27 EDT Name Value Range Interpretation Code Description Data [facility] rce(s) Supporting Document(s) ID Date Data Source [id number] 04/08/2020 06:07:00 PM EDT [facility] TSYSORDER [id number] Name Value Range Interpretation Code Description Data [facility] rce(s) Supporting Document(s) URINE COLOR. [facility] URINE APPEARANCE CLEAR [facility] SPECIFIC GRAVITY,URINE 1.025 1.001-1.035 [facility] URINE LEUKOCYTE ESTERASE NEGATIVE NEGATIVE [facility] URINE NITRATE NEGATIVE NEGATIVE [facility] PH,URINE 6.0 5.0-9.0 [facility] URINE PROTEIN NEGATIVE mg/dL NEGATIVE [facility] URINE GLUCOSE (UA) NEGATIVE mg/dL NEGATIVE [facility] URINE KETONE NEGATIVE mg/dL NEGATIVE [facility] UROBILINOGEN NORMAL(0.2-1) mg/dL 0-1 R [facility] URINE BILIRUBIN NEGATIVE NEGATIVE [facility] URINE BLOOD NEGATIVE NEGATIVE [facility] ID Date Data Source [id number] 04/08/2020 05:45:00 PM EDT [facility] l TSYSORDER [id number] Name Value Range Interpretation Code Description Data Thi rce(s) Supporting Document(s) URINE AMPHETAMINES NEGATIVE <1000 ng/mL [facility] pital THC,URINE NEGATIVE <50 ng/mL [facility] URINE BARBITURATES NEGATIVE <300 ng/mL [facility] ital PCP,URINE NEGATIVE <25 ng/mL [facility] COCAINE, URINE NEGATIVE <300 ng/mL [facility] URINE,OPIATES NEGATIVE <300 ng/mL [facility] URINE,TCA NEGATIVE <1000 ng/mL [facility] IF A NEGATIVE RESULT IS OBTAINED AND ING ESTION OF TRICYCLICANTIDEPRESSANTS IS SUSPECTED, A SERUM SAMPLE SHOULD BEOBTAINED AND TESTED USING AN APPROPRIATE METHOD. URINE BENZODIAZEPINES NEGATIVE <300 ng/mL [facility] ospital THESE TESTS ARE PERFORMED USING AN IMMU NOASSAY FOR THEQUALITATIVE DETERMINATION OF THE PRESENCE OF THE MAJORMETABOLITES OF DRUGS OF ABUSE. THESE TESTS ARE ONLY ASCREENING AND NOT CONFIRMATORY. CLINICAL CONSIDERATION ANDPROFESSIONAL JUDGMENT MUST BE APPLIED TO ANY DRUG OF ABUSETEST RESULT. ID Date Data Source [id number] 04/08/2020 06:09:00 PM EDT [facility] l TSYSORDER [id number] Name Value Range Interpretation Code Description Data Thi rce(s) Supporting Document(s) LITHIUM < 0.2 mmol/L 0.6-1.2 L [facility] ID Date Data Source [id number] 04/08/2020 06:00:[address] [facility] TSYSORDER [id number] Name Value Range Interpretation Code Description Data Thi rce(s) Supporting Document(s) PARTIAL THROMBOPLASTIN TIME 24.7 SECONDS 21.4-30.2 [facility] ID Date Data Source [id number] 04/08/2020 06:00:00 PM EDT [facility] TSYSORDER [id number] Name Value Range Interpretation Code Description Data Thi rce(s) Supporting Document(s) PROTHROMBIN TIME (PATIENT) 11.0 SECONDS 9.2-11.6 [facility] INR 1.06 0.87-1.06 [facility] ID Date Data Source [id number] 04/08/2020 06:00:00 PM EDT [facility] TSYSORDER [id number] Name Value Range Interpretation Code Description Data Thi rce(s) Supporting Document(s) WHITE BLOOD COUNT 5.9 K/mm3 4.0-10.0 [facility] al RED BLOOD COUNT 4.79 M/mm3 4.50-6.00 [facility] HEMOGLOBIN 14.8 gm/dL 14.0-18.0 [facility] HEMATOCRIT 43.6 % 42.0-54.0 [facility] MEAN CELL VOLUME 91.0 fl 80-96 [facility] MEAN CORPUSCULAR HEMOGLOBIN 30.9 pg 27.0-31.0 [facility] MEAN CORPUSCULAR HGB CONC 33.9 g/dl 32.0-36.0 [facility] RED CELL DISTRIBUTION WIDTH 12.8 % 10.0-14.5 [facility] PLATELET COUNT 240 K/mm3 172-450 [facility] MEAN PLATELET VOLUME 11.3 fl 9.0-13.0 [facility] pital GRAN % 52.7 % 50-80.0 [facility] IG% 0.2 % 0.0-0.2 [facility] LYMPH % 34.9 % 25.0-50.0 [facility] MONO % 10.6 % 2.0-10.0 H [facility] EOS % 1.4 % 0-5.0 [facility] BASO % 0.2 % 0.0-2.0 [facility] GRAN # 3.1 K/mm3 2.0-8.00 [facility] IG# 0.0 K/mm3 0.0-0.2 [facility] LYMPH # 2.1 K/mm3 1.0-5.0 [facility] MONO # 0.6 K/mm3 0.10-1.20 [facility] EOS # 0.1 K/mm3 0.0-0.5 [facility] BASO # 0.0 K/mm3 0.0-0.2 [facility] ID Date Data Source [id number] 04/08/2020 05:57:00 PM EDT [facility] TSYSORDER [id number] R [id number] [id number] [id number] [id number] 215486ZDCDNYJCF 838898TGLJQNRAJ [id number] [id number] Name Value Range Interpretation Code Description Data Thi rce(s) Supporting Document(s) ACETAMINOPHEN LEVEL < 2.0 mcg/mL 10-30 L [facility] ID Date Data Source [id number] 04/08/2020 05:57:00 PM EDT [facility] TSYSORDER [id number] R [id number] [id number] [id number] [id number] 526442VBLVGMCAO [id number] 984085RITGTUCVA [id number] Name Value Range Interpretation Code Description Data Thi rce(s) Supporting Document(s) ETHYL ALCOHOL 0.00 % 0-0.01 [facility] ID Date Data Source [id number] 04/08/2020 05:54:00 PM EDT [facility] l TSYSORDER [id number] R [id number] 224049WGKUJXZVM 447217NJSNXNBRE 773714JVZMBHZRM [id number] 118330QFKZPWWNC 743518VGXNGZICM [id number] Name Value Range Interpretation Code Description Data Thi rce(s) Supporting Document(s) SALICYLATE < 3.0 mg/dL 2.8-20.0 [facility] ID Date Data Source [id number] 04/08/2020 05:57:00 PM EDT [facility] TSYSORDER [id number] R 697503UJSAXHSDY 076444CJTPATZUU 957114UHRMABOOH 191923PDZNLXVJP 344263QCHLAHNLN 588629QVKNKQKHR 349720PVPAQPTWY [id number] Name Value Range Interpretation Code Description Data Thi rce(s) Supporting Document(s) CARBAMAZEPINE (TEGRETOL) < 2.0 ug/ml 4.0-12.0 L [facility] ID Date Data Source [id number] 04/08/2020 05:57:00 PM EDT [facility] TSYSORDER [id number] [id number] R 480851STGEUNWRS 193796EACYEZRBO 270828KIDFWXVSL 872430JJKUDGWKW 201662KYLWHGPGD 065715KAHDBSGBO 275698HZNRMVEPY [id number] Name Value Range Interpretation Code Description Data Thi rce(s) Supporting Document(s) DILANTIN/PHENYTOIN < 0.5 ug/ml 10.0-20.0 [facility] Data Source [id number] 04/08/2020 05:54:00 PM EDT [facility] TSYSORDER [id number] 547873LTLWMKIT R [id number] [id number] 553390VTGNGYSUT 927928BNZQFSIUN 759239UBHKAGCOR 159856TSCDKWSYQ 153732YDLANRLMN [id number] Name Value Range Interpretation Code Description Data Thi rce(s) Supporting Document(s) MAGNESIUM 2.2 mg/dL 1.8-2.4 [facility] ID Date Data Source [id number] 04/08/2020 05:57:00 PM EDT [facility] TSYSORDER [id number] R [id number] 754556XMLXKQCLI 445213CPIMFBODU 482597TEWTPRPRB 526051VBCMSVXTW 806171TGIELLWZO [id number] [id number] Name Value Range Interpretation Code Description Data Thi rce(s) Supporting Document(s) TROPONIN I < 0.017 ng/mL 0.0-0.056 [facility] ID Date Data Source [id number] 04/08/2020 05:54:00 PM EDT [facility] TSYSORDER [id number] 658396QSLEZPGP R 457848KRYDFYDBJ 723228OKSJTURLQ 042523SGCEEXTUQ 471677SSIIALIIA 556764KAFVDNXFL 169560KFGQUWJZV [id number] [id number] Name Value Range Interpretation Code Description Data Thi rce(s) Supporting Document(s) CREATINE PHOSPHOKINASE 88 U/L 39-308 [facility] ospital ID Date Data Source [id number] 04/08/2020 05:54:00 PM EDT [facility] TSYSORDER [id number] 249871HIKNFZYA R 478202RATRVCNUP 097208NCCHCJSJU 085420NCHKPODOI 513659VSFCWMEZI 271556RZTWMVXAU 535519JORMYMGDP 028972NTNKNGWTF [id number] Name Value Range Interpretation Code Description Data Thi rce(s) Supporting Document(s) LIPASE 127 U/L 73-393 [facility] ID Date Data Source [id number] 04/08/2020 05:54:00 PM EDT [facility] TSYSORDER [id number] R [id number] 626924LINRMTYZB 360982TWOUSHOXW 610718ATPJQQBMX 765084RJPVZHRCH 103228JZDZCKETB 355095PNESFBUQW [id number] Name Value Range Interpretation Code Description Data Thi rce(s) Supporting Document(s) GLUCOSE 98 mg/dL 74-106 [facility] BLOOD UREA NITROGEN 10 mg/dL 7-18 [facility] ital CREATININE 1.1 mg/dL 0.7-1.3 [facility] SODIUM 139 mmol/L 136-145 [facility] POTASSIUM 3.9 mmol/L 3.5-5.1 [facility] CHLORIDE 102 mmol/L 98-107 [facility] CO2 29 mmol/L 21-32 [facility] CALCIUM 9.1 mg/dL 8.5-10.1 [facility] ANION GAP 8.0 mmol/L 5-12 [facility] GLOMERULAR FILTRATION RATE 75 mL/min [facility] GFR IS CALCULATED IN mL/min/1.73m2 DENIS L FUNCTION: >90MILDLY DECREASED: 60-89MILDY TO MODERATELY DECREASED: 45-59 MODERATELY TO SEVERELY DECREASED: 30-44SEVERELY DECREASED: 15-29RENAL FAILURE: <15 AST 23 U/L 15-37 [facility] ALT 37 U/L 12-78 [facility] ALKALINE PHOSPHATASE 68 U/L 46-116 [facility] pital TOTAL BILIRUBIN 0.6 mg/dL 0.2-1.0 [facility] TOTAL PROTEIN 8.1 g/dl 6.4-8.2 [facility] ALBUMIN 4.2 gm/dL 3.4-5.0 [facility] ID Date Data Source [id number] 04/08/2020 05:44:00 PM EDT [facility] TSYSORDER [id number] Name Value Range Interpretation Code Description Data Thi rce(s) Supporting Document(s) TSH 5.54 uIU/mL 0.36-3.74 H [facility] ID Date Data Source [id number] 04/08/2020 05:36:00 PM EDT [facility] l TSYSORDER [id number] Name Value Range Interpretation Code Description Data Thi rce(s) Supporting Document(s) AMMONIA 14 umol/L 11-32 [facility] ID Date Data Source [id number] 04/08/2020 05:36:00 PM EDT [facility] l TSYSORDER [id number] Name Value Range Interpretation Code Description Data Thi rce(s) Supporting Document(s) LACTIC ACID 0.5 mmol/L 0.4-2.0 [facility] Procedure Social History Code Duration Value Status Description Data Source(s ) Smoking 08/10/2020 12:00:00 AM EST Patient has never smoked co mpleted Patient has never smoked [facility] ([facility]) Vital Signs ID Date Data Source UNK Name Value Range Interpretation Code Description Data Source(s) Body mass index (BMI) [Ratio] 24.0 kg/m2 24.0 k g/m2 [facility] ([facility], [facility]) Body height 70 [in_i] 70 [in_i] [facility] ([facility]) 5'10" Body weight 167.00 [lb_av] 167.00 [lb_av] [facility] T ([facility], [facility]) Body temperature 98.9 [degF] 98.9 [degF] [facility] ([facility]) Oxygen saturation in Arterial blood by Pulse oximetry 97 % 97 % [facility], [facility]) Respiratory rate 16 /min 16 /min [facility] Heart rate 65 /min 65 /min [facility] ([facility], [facility]) Diastolic blood pressure 74 mm[Hg] 74 mm[Hg] MEDDONNA ([facility], [facility]) Systolic blood pressure 124 mm[Hg] 124 mm[Hg] M CELIO ([facility], [facility])
== END 2020-08-13 22:40 | disposition left against medical advice (07) ==
LOC: M ED 21:35
DX: Z53.21 Procedure and treatment not carried out due to patient leaving prior to being seen by health care provider (principal)

== ENCOUNTER 2021-11-27 02:34 | Emergency (ER) | payer MEDICARE, MEDICAID ==
[~2021-11-27] VITALS: Ht 180.3 cm; Wt 78.3 kg
[2021-11-27 02:39] VITALS: BP 157/89
== END 2021-11-27 08:19 | disposition home or self-care (01) ==
LOC: M ED 02:34
DX: S62.002A Unspecified fracture of navicular [scaphoid] bone of left wrist, initial encounter for closed fracture (principal); V00.131A Fall from skateboard, initial encounter; Y92.89 Other specified places as the place of occurrence of the external cause; E03.9 Hypothyroidism, unspecified; K58.9 Irritable bowel syndrome, unspecified; Z88.8 Allergy status to other drugs, medicaments and biological substances; Z91.018 Allergy to other foods; F17.210 Nicotine dependence, cigarettes, uncomplicated

== ENCOUNTER 2022-09-11 04:41 | Emergency (ER) | payer MEDICARE, MEDICAID ==
[2022-09-11 06:05] LABS: BASO % 0.2 % (0.0-1.0); EOS % 0.1 % (0.0-3.0); HEMATOCRIT 47.8 % (42.0-52.0); HEMOGLOBIN 15.3 g/dl (13.5-17.5); LYMPH # 1.3 10^3/uL (1.5-5.0); MEAN CORPUSCULAR HEMOGLOBIN 29.8 pg (27.0-33.0); MONO # 0.3 10^3/uL (0.0-0.8); MONO % 2.8 % (2.0-8.0); NEUTROPHILS # 8.9 10^3/uL (1.5-8.5); NEUTROPHILS % 84.5 % (36.0-66.0); PLATELET COUNT, AUTOMATED 241 10^3/uL (150-450); RED BLOOD COUNT 5.14 10^6/uL (4.30-6.10); WHITE BLOOD COUNT 10.6 10^3/uL (4.0-10.0)
[2022-09-11 06:33] LABS: ETHYL ALCOHOL (ETHANOL) 0.122 % (0.000-0.010)
[2022-09-11 06:38] LABS: ALBUMIN 3.9 G/DL (3.2-5.2); ALKALINE PHOSPHATASE 71 U/L (46-116); ALT/SGPT 27 U/L (7.0-40); AST/SGOT 24 U/L (<34); BILIRUBIN,DIRECT 0.1 MG/DL (<0.4); BILIRUBIN,TOTAL 0.6 MG/DL (0.3-1.2); BLOOD UREA NITROGEN 7 MG/DL (9-23); CARBON DIOXIDE LEVEL 26 MMOL/L (20-31); CHLORIDE LEVEL 108 MMOL/L (98-107); CREATININE FOR GFR 0.96 MG/DL (0.70-1.30); GLOMERULAR FILTRATION RATE > 60.0 (>60); GLUCOSE, FASTING 111 MG/DL (60-100); POTASSIUM SERUM 4.7 MMOL/L (3.5-5.1); SODIUM LEVEL 141 MMOL/L (136-145); TOTAL PROTEIN 7.3 G/DL (5.7-8.2)
[2022-09-11] MEDS ORDERED: MULTIVITAMIN -ADULT INJECTION 10 ML, THIAMINE INJection 100 MG, FOLIC ACID 1 MG in NS 1... IV ONE (07:25)
[2022-09-11] MEDS ORDERED: GI COCKTAIL 50ML BTL(HYOSCYAMINE/MAALOX/LIDOCAINE VISCOUS)(1:3:1) PO ONE (07:25)
[2022-09-11] MEDS ORDERED: MORPHINE 2 MG/ML 1ML VIAL IV ONE (07:25)
[2022-09-11 07:43] LABS: LIPASE 40 U/L (12-53)
[2022-09-11] MEDS ORDERED: ISOVUE-370 76% 100ML VIAL As Ordered ONE (07:51)
[2022-09-11] MEDS ORDERED: FAMO20TA PO (09:18)
[2022-09-11] MEDS ORDERED: ONDA4TAB6 PO (09:20)
[2022-09-11 10:00] VITALS: BP 128/76
== END 2022-09-11 10:05 | disposition home or self-care (01) ==
LOC: EDSEX 04:41 → M ED 04:41 → EDBD 04:41 → M ED 10:05
DX: F10.129 Alcohol abuse with intoxication, unspecified (principal); E86.0 Dehydration; K21.9 Gastro-esophageal reflux disease without esophagitis; E03.9 Hypothyroidism, unspecified; Z88.8 Allergy status to other drugs, medicaments and biological substances

== ENCOUNTER 2023-10-30 23:27 | Emergency (ER) | payer MEDICARE, MEDICAID ==
[~2023-10-30] VITALS: Ht 180.3 cm; Wt 76.0 kg
[~2023-10-30 23:27] MED LIST changes: +FAMO20TA PO; +MELA1DRO PO; -MELA1LIQ PO; +ONDA4TAB6 PO
[2023-10-31 00:11] LABS: BASO # 0.1 10^3/uL (0.0-0.2); BASO % 0.4 % (0.0-1.0); EOS # 0.3 10^3/uL (0.0-0.5); EOS % 2.4 % (0.0-3.0); HEMATOCRIT 44.5 % (42.0-52.0); HEMOGLOBIN 14.8 g/dl (13.5-17.5); LYMPH # 3.7 10^3/uL (1.5-5.0); LYMPH % 32.6 % (24.0-44.0); MEAN CORPUSCULAR HEMOGLOBIN 30.2 pg (27.0-33.0); MEAN CORPUSCULAR HGB CONC 33.3 g/dl (32.0-36.5); MEAN CORPUSCULAR VOLUME 90.8 fl (80.0-96.0); MONO # 1.4 10^3/uL (0.0-0.8); MONO % 12.6 % (2.0-8.0); NEUTROPHILS # 5.8 10^3/uL (1.5-8.5); NEUTROPHILS % 51.6 % (36.0-66.0); PLATELET COUNT, AUTOMATED 276 10^3/uL (150-450); WHITE BLOOD COUNT 11.3 10^3/uL (4.0-10.0)
[2023-10-31] MEDS: UNRESOLVED CLARIFICATION ENTRY XX STA (00:13)
[2023-10-31] MEDS: MORPHINE 4 MG/ML 1ML VIAL IV ONE (00:18)
[2023-10-31] MEDS: ONDANSETRON 4MG 2ML VIAL IV ONE (00:19)
[2023-10-31] MEDS: NS 1,000 ML IV ONE (00:19)
[2023-10-31 00:31] LABS: ALBUMIN 4.1 G/DL (3.2-5.2); BILIRUBIN,DIRECT 0.1 MG/DL (<0.4); BILIRUBIN,TOTAL 0.6 MG/DL (0.3-1.2); CALCIUM LEVEL 9.1 MG/DL (8.5-10.1); CREATININE FOR GFR 1.4 MG/DL (0.70-1.30); GLOMERULAR FILTRATION RATE 58.9 (>60); POTASSIUM SERUM 3.6 MMOL/L (3.5-5.1); TOTAL PROTEIN 7.4 G/DL (5.7-8.2)
[2023-10-31] MEDS ORDERED: HOME MED LIST COMPLETE! XX SCH (02:20)
[2023-10-31] MEDS: FAMOTIDINE 20MG/2ML VIAL IVP ONE (02:48)
[2023-10-31 03:00] VITALS: BP 120/68; O2SAT 97
[2023-10-31] MEDS ORDERED: OMEP40CA4 PO (03:01)
[2023-10-31] MEDS ORDERED: TRAM50TA2 PO (03:04)
[2023-10-31 03:16] VITALS: TEMP 98.8
== END 2023-10-31 03:18 | disposition home or self-care (01) ==
LOC: EDBD 23:27 → M ED 23:27
DX: K30 Functional dyspepsia (principal); K21.9 Gastro-esophageal reflux disease without esophagitis; F41.9 Anxiety disorder, unspecified; F31.9 Bipolar disorder, unspecified; F20.9 Schizophrenia, unspecified; Z88.8 Allergy status to other drugs, medicaments and biological substances; Z91.018 Allergy to other foods; Z79.899 Other long term (current) drug therapy
CPT/HCPCS: 74176; 76705; 80048; 80076; 81001; 83690; 85025; 93041; 96361; 96374; 96375; 99285; J2405